=== PATIENT | female | born 2005 | race Caucasian/White ===

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

== ENCOUNTER 2023-01-05 20:36 | Emergency (ER) | payer BC, OTHER ==
--- NOTE | 2023-01-05 20:49 | ER ---
Nurse's Notes [facility] Name: Janeth Arteaga Age: 17 yrs Sex: Female : 2005 Arrival Date: 01/05/2023 Time: 20:36 Bed Waiting Private MD: Diagnosis: Presentation: 01/05 20:47 Chief complaint: left because of no OB and wait time. vc1 ED Course: 20:41 Patient arrived in ED. es Administered Medications: No medications were administered Outcome: 20:48 Patient left the ED. vc1 Signatures: Ignacia Monroe Vanessa RN RN vc1
--- OUTSIDE RECORDS SUMMARY | 2023-01-05 21:04 | XMS REPORT | Continuity of Care Document ---
:2005 Author Organization [facility] t Address [address] [facility]. [address] [place] [address] Care Team Providers Name Role Phone PCP, PATIENT DOES NOT HAVE A Primary Care Physician Unavaila DUSTIN Donis Attending Clinician Unavailable DUSTIN STAPLES Attending Clinician Unavailable José Miguel Gaines MD Attending Clinician Giovana Emerson DO Attending Clinician GIOVANA EMERSON Attending Clinician Unavailable DUSTIN STAPLES Admitting Clinician Unavailable Giovana Emerson DO Admitting Clinician GIOVANA EMERSON Admitting Clinician Unavailable Payers Payer Name Policy Type Policy Number Effective Date Expiration Date S [facility] [id number] 2021 00:00:00 Problems Condition Condition Condition Status Onset Resolution Last Treating Co mments Source Name Details Category Date Date Treatment Clinician Date 13 weeks 13 weeks Disease Active Unive rs gestation gestation 9-10 ity of of of 00:00: [place] 00 [facility] batsheva Branch Syncope, Syncope, Disease Active Unive rs unspecifie unspecifie 11-04 it y of d syncope [place] 00 [place] Obesity Obesity Disease Active Univers (BMI (BMI - ity of 30-39.9) 30-39.9) 00:00: [place] 00 Medical Branch Allergies, Adverse Reactions, Alerts Allergy Allergy Status Severity Reaction(s) Onset Inactive Treating Comm ents Source Name Type Date Date Clinician Clinangélica Propensi Active Rash Univer s yanna ty to 11-04 ity of adverse 00:00: [place] reaction 00 Medical s Branch CLINDAMY DRUG Active Rash Univers YANNA INGREDI 11-04 ity of 00:00: [place] 00 Medical Branch NO KNOWN Drug Active Univers ALLERGIE Class ity of [facility] Social History Social Habit Start Date Stop Date Quantity Comments Source Gender identity Universit [facility] Sexual orientation Univer [facility] Sex Assigned At [address] [facility] 00:00:00 00:00:00 Medical Branch Smoking Status Start Date Stop Date Source Tobacco [facility] consumption [facility] Medications Ordered Filled Start Stop Current Ordering Indication Dosage Frequency Signature Comments Components Source Medication Medication Date Date Medication? Clinician (SIG) Name Name NaCl 0.9% Yes 1000mL at 125 Univ ers (NS) IV 9-10 mL/hr, IV ity of infusion 00:00[place] 1,000 mL 00 CONTINUOUS Medic al , Starting Branch on 11/04/22 at 1900, Until Discontinu ed, Routine 2022- Yes [id number] 1{tbl} Take 1 Univers vitamin 9-10 10-11 tablet by ity of w/FA tablet 00:00: 04:59 mouth in [place] :00 the Medical morning Branch for 30 days. acetaminoph Yes 650mg 650 mg, Un roset[place] en 11-04 Oral, ity of (TYLENOL) 23:53: Q6HPRN, [place] tablet 650 14 Starting Medic al mg on Sat Branch 11/04/22 at 1853, Until Discontinu ed, Routine, Pain (scale 1-3) NaCl 0.9% 2022- No 1000mL at 999 Uni vers (NS) bolus 11-04 mL/hr, ity of infusion 21:45: 23:44 1,000 mL, [place]il[place] as 1,000 mL 00 :00 IV Medical Infusion, Branch ONCE, 1 dose, On 11/04/22 at 1645, CARLA Vital Signs Vital Name Observation Time Observation Value Comments Source Systolic blood 2022-11-05 14:25:00 112 mm[Hg] Univer sity of pressure [facility] Diastolic blood 2022-11-05 14:25:00 62 mm[Hg] [facility] Heart rate 2022-11-05 14:25:00 78 /min [facility] Body temperature 2022-11-05 14:25:00 36.89 Riri [facility] Oxygen saturation in 2022-11-05 14:25:00 99 /min [facility] Arterial blood by [facility] Pulse oximetry [place] Respiratory rate 2022-11-05 01:00:00 18 /min [facility] Body height 2022-11-04 20:48:00 149.9 cm [facility] Body weight 2022-11-04 20:48:00 68.04 kg [facility] BMI 2022-11-04 20:48:00 30.30 kg/m2 [facility] Procedures Procedure Date / Time Performing Clinician Source Performed TRANSTHORACIC ECHO (TTE) 2022-11-05 13:34:[address] [facility] POCT GLUCOSE (AUTOMATED) 2022-11-05 09:22:00 Kian [facility] POCT GLUCOSE (AUTOMATED) 2022-11-05 05:39:00 Giovana Emerson [facility] CORTISOL PM SERUM 2022-11-05 01:20:00 Kian [facility] FREE T4 2022-11-05 01:20:00 Kian [facility] THYROID STIMULATING 2022-11-05 01:20:00 Giovana Emerson [facility] HORMONE [facility] FREE T3 2022-11-05 01:20:00 Kian [facility] POCT GLUCOSE (AUTOMATED) 2022-11-04 23:44:00 José Miguel Gaines [facility] TROPONIN I 2022-11-04 21:32:00 José Miguel Gaines [facility] HEPATIC FUNCTION PANEL 2022-11-04 21:32:00 José Miguel Gaines [facility] ([id number]) (ALB,T.PRO,BILI Medical Branch T,BU/BC,ALT,AST,ALK PHOS) BASIC METABOLIC PANEL 2022-11-04 21:32:00 José Miguel Gaines [facility] (NA, K, CL, CO2, Medical Branch GLUCOSE, BUN, CREATININE, CA) TOTAL BETA HCG ASSAY 2022-11-04 21:32:00 José Miguel Gaines [facility] URINE DRUG (IMMUNOASSAY) 2022-11-04 21:32:00 José Miguel Gaines [facility] SCREEN CBC WITH DIFF 2022-11-04 21:32:00 José Miguel Gaines [place] [facility] PROTHROMBIN TIME / INR 2022-11-04 21:32:00 José Miguel Gaines [facility] 2022-11-04 21:32:[address] [facility] THRMPLAS [facility] URINALYSIS 2022-11-04 21:32:00 José Miguel Gaines [place] [facility] N-TERMINAL PRO-BNP 2022-11-04 21:32:00 José Miguel Gaines [facility] NOTICE OF PRIVACY 2022-11-04 20:35:05 Doctor Unassigned, No Univ [facility] PRACTICES Name [facility] CONSENT/REFUSAL FOR 2022-11-04 20:34:07 Doctor Unassigned, No [facility] DIAGNOSIS AND TREATMENT Name [facility] Encounters Start End Encounter Admission Attending Care Care Encounter Source Date/Time Date/Time Type Type Clinicians Facility Department ID 2023-01-01 2023-01-01 Outpatient X DUSTIN STAPLES [facility] O BY [id number] Univers 14:33:00 16:05:00 DUSTIN STAPLES [facility] 2022-11-04 2022-11-05 Emergency José Miguel Gaines [facility] [id number] Univers 15:49:00 15:10:00 Giovana Emerson [id number] [facility] [id number] [facility] [id number] [facility] 083 Branch 2022-11-04 2022-11-05 Outpatient X KIAN [facility] [id number] Univers 15:49:00 15:10:00 GIOVANA [facility] Results Test Description Test Time Test Comments Results Result Comments Source NIPS W/ SEX 2022-12-05 17:03:39 Test Item Value Reference Range Interpretation Comme nts FINAL NIPS RESULT (test Low Risk code = 00298) SEX (test code = Female 13205) FRACTION (EST.) (test 7 % code = 84433) TRISOMY 21 (T21) (test code Low probability = 06093) T21 PRE-TEST PROB (test 02/26,146 code = 75528) T21 POST-TEST PROB (test <20,000 code = 10831) TRISOMY 18 (T18) (test code Low probability = 082245) T18 PRE-TEST PROB (test 02/27,515 code = 279770) T18 POST-TEST PROB (test <20,000 code = 355118) TRISOMY 13 (T13) (test code Low probability = 427960) T13 PRE-TEST PROB (test 03/03,972 code = 381643) T13 POST-TEST PROB (test <20,000 code = 113996) INTERPRETATION (test code = See Note Testing of circulating cell-free DNA 786605) from maternalbl ood shows no evidence of numerical ab normalitiesof the tested ch romosomes. IMPORTANT INFORMATION (test See Note Patients with a pre-test probability code = 922971) higher thanth e general population will have a higher r esidualrisk, even after negative NIPS r esults, than thosewith a lower pre-[place] t probability. The pre-testprobabi lity or risk of an abnormality is estimatedfrom maternal age but it may be influenced bycertain maternal or pre gnancy-related factors asdetailed in T est Performance Characteristics below.False negative NIPS results ar e rare but may occurdue to biological o r analytical factors. RECOMMENDATION (test code = See Note A negative result does not eliminate 989467) the risk foroth er chromosomal abnormalities o r birthdefects that are not evaluated i n this screeningtest. Clinical correl ation of test results isrecommended. GESTATION AT JENNIFER (W) (test 18 weeks code = 233273) GESTATION AT JENNIFER (D) (test 4 days code = 163863) DELIVERY DATE (EST.) (test 04/26/2023 code = 281674) PROVIDED HISTORY INFORMATION (test code = 312506) NUMBER OF FETUSES (test [place] code = 029211) MATERNAL WEIGHT (test code 163 LBS = 868489) IVF (test code = NO 831490) PATIENT CONSENT (test code YES = 872484) SEX (test code = See Note sex determination is based on 959317) detection of Yc hromosome in DNA fragments. The absence of Ychromosome in this sample indicates a very highlikelihood that the fetus is female sex. Sex assignment may not be perfectly accur ate due topregnancy-rel ated issues such as demise am ongother possibilities. sex deter mination doesnot exclude Sex Chr omosome Aneuploidy (SCA),including Monosomy X, unless that testing is specifically ordered. Genetic Ice Cream Truck Driver ing:The submitting laboratory can facilitate consultation with anindepend ent, qualified genetic counselor. Educ ational materials andinformation regarding genetic counseling serv ices are available [email or web address]. Method:[facility]'s Non-Invasive Pr enatal Screening (NIPS)test is i ntended for early screening of fe everardo aneuploidies (bothmonosomy a nd trisomy) in chromosomes 21, 18, 13, X and Y. The testutilizes Il Fanshout's Tal[employer] Flush NIPT Solution v2 and whole-genomesequencing of circulating fragments of cell-free DNA (cfDNA) obt ainedfrom maternal plasma at 10 we eks gestation or later. The fetalcompon ent of cfDNA is derived from placental tissue. Paired-endseque ncing data of cfDNA are aligned with a reference genome (HG19)and karma zed by the Tal[employer] Flush NIPT Solution v2 alg orithm to determinefetal fraction (FF) and numerical abnor malities in chromosomes 21,18, 13, X an d Y. FF is used as a chief vendor quality parameter for NIPSanalysis an d interpretation. This test was develo ped and itsperformance characteristics determined by [facility]). It has not been cleared or approved by the U.S. Food and DrugAd ministration (FDA). The FDA has determi ella that such clearance orapproval is n ot necessary. This test is used for cli nical purposesand should not be r egarded as investigational or for research. [facility] isqualified to perform high complexity testing under t he ClinicalLaboratory Improvement Pat ndflash (CLIA). Test Performance Alisha racteristics:[place] :Triso my 21 (N=130): Sensitivity >99 %, Specificity >99.9%Trisomy 1 8 (N=41): Sensitivity >99%, Specifici ty >99.9%Trisomy 13 (N=26): Sensiti vity >99%, Specificity >99.9%Monosomy X (N=21): Sensitivity 90.5%, Specific ity >99%Trisomy X (N=17): Sensiti vity >99%, Specificity >99%XXY (N=23): Sensitivity >99%, Specificity &gt ;99%XYY (N=12): Sensitivity 91. 7%, Specificity >99% Sensitivity and specificity for singletons for T21, T18 and T13 andsex chromosome aneu ploidies (SCA) are derived from a study of 2,235pregnancie s using the [employer] MedicaliSeq NIPT v2 test. T he number of affectedpregnan cies are indicated in parentheses in the chart above. Thespecificity estimate for SCA is based on identi fication of a definedSCA in a ll 73 affected pregnancies; th e final cytogenetic results mayindi luis m a different SCA. Concordance bet ween predicted sex and sexat delivery was >99.9%. Twin :Triso my 21: Sensitivity 96.4%, Specific ity 99.9%Trisomy 18: Sensitivity 95. 7%, Specificity 99.9%Trisomy 13 : Sensitivity 93.6%, Specificity 99. 9% Test performance characteristics for T21, T18 and T13 in twinpregnanc ies are based on in silico simulati on models due to the lowprevalence o f trisomy 21, 18, and 13 in twin preg nancies. Sensitivityand specificity inf ormation is not available for M onosomy X or SCAin twin pregnancies. Pr e- and Post-Test Probability:The pre-test probability of a trisomy in urbina and twinpregnancies , and SCA in urbina pregnancies is based on literatureof prevalence or r isk. The post-test probability is calculated fromthe prevalence of a n abnormality and the test performanc echaracteristics or is derived from pu blished medical literature.Refe r to [email or web address]/erd for additionali nformation on pre- and post-test proba bility. Depending upon anumber of mate rnal or -relat ed risk factors, an individualpregn victor manuel may have higher or lower pre-test probability which cansignificantl y affect the post-test risk estimation . Personal/family history, sonographic and other pregn victor manuel-related screening findingsare not utilized in the risk estimation. Gen etic or medicalcounseli ng may be useful to revise risk est imates. Test Limitations:[facility] NI PS test is a screening test, therefore false negative or false positive result s can occur. Maternalconditi ons including but not limited to bloo d transfusion, organtransplant ation, bone marrow transplant, cer tain surgical procedures,stem cell therapy, malignancy or g enetic mosaicism can affect testaccu racy. -related conditions such as or placentalgeneti c mosaicism, demise or nonvi able twin can also affecttest accu racy. The test assesses numerical abnor malities of the givenchromosome s which does not eliminate the p ossibility that thepregnancy welch s numerical abnormalities o f other chromosomes, balancedtranslo cations or sub-chromosomal abnormalities (point mutations orsma ll deletions). Test results should always be correlated andinterpreted in the context of clinical findin gs, family/patienth istory and other test results. Pregna ncies affected by high riskresults may benefit from genetic counseling and should undergodefiniti ve confirmation testing. Conclu sions about conditionand pr egnancy management decisions shoul d not be based solely on theresults o f this screening test. This NIPS test does not detect allgenetic, non -genetic or structural defects, includingopen neural tube defects fo r which biochemical or sonographicscre ening options are available. TEST ING PERFORMED AT [employer] [employer] [address], [address], [address] [place] [address] CLIA N O: [id number] CULTURE, [id number] 11:19:56SPECIMEN NUMBER: [id number] CULTURE, URINE SPECIMEN NUMBER: [id number] SPECIMEN COMMENT: URINE SOURCE:URINE REPORT STATUS: FINAL FINAL REPORT: 11/29/2022 10-50,000 CFU/ML UROGENITAL GRZEGORZ PRESENT NO COMM ON PATHOGENSCT/NG, NAAT, [id number] 18:32:49 Test Item Value Reference Range Interpretation Comments CHLAMYDIA, NAAT, NEGATIVE NEGATIVE Testing is performed with URINE (test code Kayla ROLLY 6800/8800 = 28986) systems usingre al-time polymerase marti n reaction (PCR) method. A negative result does not exclude low level infection , specimensamplin g error, or collection erro r. GONORRHEA, NAAT, NEGATIVE NEGATIVE Testing is performed with URINE (test code Kayla ROLLY 6800/8800 = 59108) systems usingre al-time polymerase marti n reaction (PCR) method. A negative result does not exclude low level infection , specimensamplin g error, or collection erro r. VARICELLA ZOSTER [id number] 13:54:57 Test Item Value Reference Range Interpretation Comments VARICELLA ZOSTER IgG 20 INDEX SEE BELOW L INTERP RETATION VZV IgG (test code = 74029) NEGATIVE . . . . . . . . . . . . INDEX < 135 EQUIVOCAL. . . . . . . . . . . . INDEX 1 35-164 NOTE: CONSIDER RETESTING IN A CLINICALLY SUITABLE PERIOD OF TIME, NO SOONER THAN 1-2 WEEKS. POSITIVE . . . . . . . . . . . . INDEX >=165 GLUCOSE, 1 HR, GESTATIONAL SCREEN, 50 GM [id number] 09:12:10 Test Item Value Reference Range Interpretation Comments GLUCOSE 1 HR POST 50 81 MG/DL <140 UNLESS OTHERWISE GM (test code = INDICATED, A LL TESTING 2005) PERFORMED AT [facility] [employer] [employer] [address] [place] [id number] [place] [address] DIRECTOR: Elba STOREY MADINA NUMBER [id number] CAP ACCREDITATION N O. [id number] DRUG ABUSE SCREEN 10 REFLEX [id number] 06:10:44 Test Item Value Reference Range Interpretation Comments AMPHETAMINES (test NEGATIVE NEGATIVE code = 3201) BARBITURATES (test NEGATIVE NEGATIVE code = 3202) BENZODIAZEPINES (test NEGATIVE NEGATIVE code = 3203) CANNABINOIDS (test NEGATIVE NEGATIVE code = 3204) COCAINE METABOLITE NEGATIVE NEGATIVE (test code = 3205) OPIATES (test code = NEGATIVE NEGATIVE 3209) OXYCODONE (test code NEGATIVE NEGATIVE = 13601) PHENCYCLIDINE (test NEGATIVE NEGATIVE code = 3210) METHADONE (test code NEGATIVE NEGATIVE = 3207) BUPRENORPHINE (test NEGATIVE NEGATIVE code = 08819) SOURCE (test code = URINE SEE BELOW FOR 116138) THRESHOLDS AND IMPORTANT METHOD NOTES * ANALYTE SCREENING CUTOF F CONFIRMATORY CUTOFF AMPHETAMINES 50 0 NG/ML 100 NG/MLBARBIT URATES 200 NG/ML 100 NG/MLBENZODIAZE PINES 200 NG/ML 100 NG/MLCANNABINOI DS (THC) 20 NG/ML 15 NG/ MLCOCAINE METABOLITES 15 0 NG/ML 100 NG/MLOPIATE METABOLITES 300 NG/ML 100 NG/MLOXYCODONE 100 NG/ML 100 NG/MLPHENCY CLIDINE (PCP) 25 NG/ML 25 NG/MLMETHADONE 300 NG/ML 100 NG/MLBUPREN ORPHINE 5 NG/ML 5 NG/ML N OTE: Screening metho dology is qualitative Enz yme Immunoassay.The screening method may be l ess sensitive for c ertain medicationsincl uding clonazepam and lorazepam in the benzodia zepine assay andtramad ol or fentanyl in the opiate assay, amongst others. Patientcomplian ce, hydration statu s, timing and dose of med ications, drugabsorption and specimen qualit y may affect screenin g assay.For clini batsheva discrepancies, consider directed testin g for specificcompoun ds or contact the lab oratory within specimen stability toforward for confirmatory te sting. This test is sp ecified for medicalpurp oses only. It is not valid for forensic use. OBSTETRIC PANEL + [id number] 05:03:20 Test Item Value Reference Range Interpretation Comments WBC (test code = 10.5 K/UL 3.5-11.0 1001) RBC (test code = 3.76 M/UL 3.80-5.40 L 1002) HEMOGLOBIN (test 10.9 G/DL 11.5-15.5 L code = 1003) HEMATOCRIT (test 33.3 % 34.0-45.0 L code = 1004) MCV (test code = 88.6 fL 80.0-99.0 1005) MCH (test code = 29.0 PG 25.0-33.0 1006) MCHC (test code = 32.7 G/DL 31.0-36.0 1007) RDW (test code = 12.8 % 11.5-15.0 1038) NEUTROPHILS (test 66.7 % code = 1008) LYMPHOCYTES (test 21.6 % code = 1010) MONOCYTES (test 7.2 % code = 1011) EOSINOPHILS (test 3.6 % code = 1012) BASOPHILS (test 0.4 % code = 1013) IMMATURE 0.5 % GRANULOCYTES (test code = 1036) NUCLEATED RBCS 0.0 /100 WBC'S See_Comment [Automated message] (test code = 1065) The syste [employer] which generated this result transmit sergey reference range : 0.0. The refere nce range was not u sed to interpret th is result as normal/abnormal . PLATELET COUNT 275 K/UL 130-400 (test code = 1015) ABSOLUTE 7.02 K/UL 1.50-7.50 NEUTROPHILS (test code = 1066) ABSOLUTE 2.27 K/UL 1.00-4.00 LYMPHOCYTES (test code = 1067) ABSOLUTE MONOCYTES 0.76 K/UL 0.20-1.00 (test code = 1068) ABSOLUTE 0.38 K/UL 0.00-0.50 EOSINOPHILS (test code = 1040) ABSOLUTE BASOPHILS 0.04 K/UL 0.00-0.20 (test code = 1069) ABS IMMATURE 0.05 K/UL 0.00-0.10 GRANULOCYTES (test code = 1020) ABS NUCLEATED RBCS 0.00 K/UL 0.00-0.11 (test code = 60921) BLOOD TYPE AND RH A POSITIVE A HISTORI BATSHEVA RECORD (test code = 3901) CHECK FOR PREVIOUS RESULTS IS NOT PERFORMED.THESE RESULTS SHOULD BE CORRELATED WITH RESULTS OF PRIO R BLOODTYPING AND ANTIBODY SCREEN STUDIES. ANTIBODY SCREEN NEGATIVE NEGATIVE A HISTORICA L RECORD (test code = 3902) CHECK FOR PREVIOUS RESULTS IS NOT PERFORMED.THESE RESULTS SHOULD BE CORRELATED WITH RESULTS OF PRIO R BLOODTYPING AND ANTIBODY SCREEN STUDIES. RUBELLA ANTIBODY 2 IU/ML SEE BELOW L SCREEN (test code = 4600) RUBELLA IgG INTERP NON-REACTIVE REACTIVE A INTERPRE TATION (test code = 31739) UNITS RA NGE NON-REACTIVE/NO N-IMM UNE IU/ML <10 REACTIVE/IMMUNE IU/ML >=10 HEPATITIS B SURF AG NON-REACTIVE NON-REACTIVE (test code = 2739) RPR (test code = NON-REACTIVE NON-REACTIVE 28598) RPR TITER (test NOT INDIC. NOT INDIC. code = 3500) TITER HIV 1/2 4TH GEN, NON-REACTIVE NON-REACTIVE RFLX CONF (test code = 3514) HEPATITIS C REFLEX [id number] 05:03:20 Test Item Value Reference Range Interpretation Comments HEPATITIS C ANTIBODY (test code NON-REACTIVE NON-REACTIVE = 4675) [id number] 03:42:03 Test Item Value Reference Range Interpretation Comments RPR RESULT (test code = NON-REACTIVE NON-REACTIVE 3501) RPR TITER (test code = 3500) NOT INDIC. TITER NOT INDIC. POCT GLUCOSE (AUTOMATED)2022-11-05 09:24:00 Test Item Value Reference Range Interpretation Comments POCT GLU (test code = 4360755520) 80 mg/dL 70-110 Lab Interpretation (test code = Normal 64835-6) [facility] [id number] 06:40:24 Test Item Value Reference Range Interpretation Comments MESFIN PM (test code = 3.0 ug/dL 1.7-14.0 5624194101) SUSIE (test code = SUSIE) Biotin has been reported to cause a positive bias, interpret results relative to patient's use of biotin. Lab Interpretation (test Normal code = 79689-1) [facility]2022-11-05 05:40:14 Test Item Value Reference Range Interpretation Comments POCT GLU (test code = 8450691074) 103 mg/dL 70-110 Lab Interpretation (test code = Normal 91437-7) [facility] [id number] 03:07:32 Test Item Value Reference Range Interpretation Comments TSH (test code = See_Comment L [Automated message] [id number]) The system Guest of a Guest generated this result transmitted ref erence range: 0.45 - 4 .70 mIU/L. The refe rence range was not u sed to interpret this result as normal/abnor mal. Lab Interpretation (test Abnormal code = 44912-3) [facility] [id number] 02:53:49 Test Item Value Reference Range Interpretation Comments FREE T4 (test code = 1.14 See_Comment [Autom ated message] [id number]) The system whic h generated this result transmitted ref erence range: 0.78 - 2 .20 ng/dL:. The ref erence range was not u sed to interpret this result as normal/abnor mal. Lab Interpretation (test Normal code = 15925-9) [facility] [id number] 02:53:34 Test Item Value Reference Range Interpretation Comments FREE T3 (test code = 0558677030) 4.36 pg/mL 2.77-5.27 Lab Interpretation (test code = Normal 47096-1) [facility] GLUCOSE (AUTOMATED)2022-11-04 23:45:31 Test Item Value Reference Range Interpretation Comments POCT GLU (test code = 85 mg/dL 70-110 Notifi ed Provider [id number]) Lab Interpretation (test Normal code = 37910-3) [facility] WITH [id number] 22:06:58 Test Item Value Reference Range Interpretation Comments WBC (test code = 9.08 See_Comment [Automated 5890-2) message] The sy stem which generated this result transmitted reference range : 4.30 - 11.10 10*3/?L. The reference range was not used to interpret this result as normal/abnormal . RBC (test code = 3.97 See_Comment [Automated 409-8) message] The sy stem which generated this result transmitted reference range : 3.93 - 5.25 10*6/?L. The reference range was not used to interpret this result as normal/abnormal . HGB (test code = 12.1 g/dL 11.6-15.0 718-7) HCT (test code = 35.3 % 35.7-45.2 L 4544-3) MCV (test code = 88.9 fL 80.6-95.5 787-2) MCH (test code = 30.5 pg 25.9-32.8 785-6) MCHC (test code = 34.3 g/dL 31.6-35.1 786-4) RDW-SD (test code = 42.1 fL 39.0-49.9 75291-8) RDW-CV (test code = 12.9 % 12.0-15.5 788-0) PLT (test code = 263 See_Comment [Automated 777-3) message] The sy stem which generated this result transmitted reference range : 166 - 358 10*3/ ?L. The reference r sj was not used to interpret this result as normal/abnormal . MPV (test code = 10.9 fL 9.5-12.9 27467-7) NRBC/100 WBC (test 0.0 See_Comment [Automat ed code = [id number]) message] The system which generated this result transmitted reference range : 0.0 - 10.0 /100 WBCs. The refer ence range was not u sed to interpret th is result as normal/abnormal . NRBC x10^3 (test code See_Comment [Auto mated = [id number]) message] The s ystem which generated this result transmitted reference range : 10*3/?L. The reference range was not used to interpret this result as normal/abnormal . GRAN MAT (NEUT) % 70.6 % (test code = 770-8) IMM GRAN % (test code 0.30 % = 7980317319) LYMPH % (test code = 17.5 % 736-9) MONO % (test code = 8.5 % 5905-5) EOS % (test code = 2.8 % 713-8) BASO % (test code = 0.3 % 706-2) GRAN MAT x10^3(ANC) 6.41 10*3/uL 1.88-7.09 (test code = 3130190796) IMM GRAN x10^3 (test 0.03 10*3/uL 0.00-0.06 code = 2099570446) LYMPH x10^3 (test code 1.59 10*3/uL 1.32-3.29 = 731-0) MONO x10^3 (test code 0.77 10*3/uL 0.33-0.92 = 742-7) EOS x10^3 (test code = 0.25 10*3/uL 0.03-0.39 711-2) BASO x10^3 (test code 0.03 10*3/uL 0.01-0.07 = 704-7) Lab Interpretation Abnormal (test code = 28129-0) [facility], [id number] 10:04:28SPECIMEN NUMBER: [id number] CULTURE, URINE SPECIMEN NUMBER: [id number] SPECIMEN COMMENT: URINE SOURCE:URINE REPORT STATUS: FINAL FINAL REPORT: 10/29/2022 <10,000 CFU/ML UROGENITAL GRZEGORZ PRESENT NO COMMON PATHOGENSVAGINAL PATHOGENS DNA PANEL 2022-10-28 14:46:31 Test Item Value Reference Range Interpretation Comments BRENDA SPECIES POSITIVE NEGATIVE A (test code = ) G. VAGINALIS NEGATIVE NEGATIVE (test code = ) T. VAGINALIS NEGATIVE NEGATIVE Note: The BD A ffirm VPIII (test code = Microbial Ident ification ) Testis a DNA pr obe test intended for us e in the detectionand id entification of Brenda spec ies, Gardnerellavagi nalis and Trichomonas vag inalis nucleic acid. UNLESS OTHERWISE INDIC ATED, ALL TESTING [facility] [place] [place] [address] LABORATORY DIRE CTOR: CHRIS PATEL M.D. CLIA NUMBER [id number] CAP ACCREDITATION N O. [id number] Consult Notes Date/Time Note Provider Source 2022-11-05 11:00:31 [id number]:00:31[facility] Order(s): CONSULT DISEASE STAFF CARDIOLOGY [facility] Cardiology ConsultPCP: PATIENT DOES NOT HAVE A PCP Date of Service: 11/05/2022HIEF COMPLAINT/reason for consult: Syncope HISTORY OF PRESENT ILLNESSThis is a 17 years old Female without significant medical history who came to [facility] due to syncope. She is 13 weeks . Since the , she has been having frequent episodes of dizziness and syncope. Those episodes are usually preceded by nausea, dizziness, feeling hot, muffled hearing and blurry vision. Syncope lasted a few seconds. No incontinence or seizure activity.PAST MEDICAL HISTORY No past medical history on file.No past surgical history on file.No family history on file.ALLERGIESAllergies Allergen Reactions Clindamycin Rash MEDICATIONSNo current facility-administered medications on file prior to encounter. No current outpatient medications on file prior to encounter. SOCIAL HISTORYSocial History Socioeconomic History Marital status: Single REVIEW OF SYSTEMSAt least 10 systems reviewed, negative except as mentioned in HPI PHYSICAL EXAMINATIONVitals: 11/04/22202911/04/22203411/05/225 11/05/22924 BP: 134/88 112/62 Pulse: 81 79 78 Resp: Temp: 36.9 ?C (98.4 ?F) TempSrc: Oral SpO2: 100% 100% 99% Weight: Height: Constitutional: alert and oriented x 3 (person, place and date/time); no apparent distressENT: normocephalic atraumatic, supple, no lymphadenopathy, no bruits, no JVDLungs: clear to auscultation bilaterallyCardiovascular: S1, S2 normal, regular; no murmurs, rubs or gallopsGI: soft; non-tender; non-distended; normoactive bowel soundsGU: not examinedMusculoskeletal: Extremities: no clubbing, cyanosis, or edemaSkin: no rashesNeuro: no focal deficitsLABS - reviewed pertinent labs as below:CBC BMP PT/INR WBC (10*3/?L) Date Value 11/04/2022 9.08 NA (mmol/L) Date Value 11/04/2022 136 No results found for: "PT" PLT (10*3/?L) Date Value 11/04/2022 263 K (mmol/L) Date Value 11/04/2022 4.2 INR (no units) Date Value 11/04/2022 1.0 HGB (g/dL) Date Value 11/04/2022 12.1 BUN (mg/dL) Date Value 11/04/2022 5 (L) HCT (%) Date Value 11/04/2022 35.3 (L) CREATININE (mg/dL) Date Value 11/04/2022 0.41 (L) LIPID PROFILE GLUCOSE (mg/dL) Date Value 11/04/2022 89 No results found for: "CHOL" TSH No results found for: "LDL" TSH (mIU/L) Date Value 11/04/2022 <0.02 (L) CARDIAC ENZYMES No results found for: "HDL" No results found for: "CK" No results found for: "TRIG" LFTs No results found for: "CKMB" AST(SGOT) (U/L) Date Value 11/04/2022 42 (H) TROPONIN I (ng/mL) Date Value 11/04/2022 0.003 ALTv (U/L) Date Value 11/04/2022 28 No results found for: "BNP" EKG: Normal EKGASSESSMENT/PLANPrincipal Problem: Syncope, unspecified syncope typeActive Problems: Obesity (BMI 30-39.9)Syncope-likely vasovagal syncope in the setting of . EKG is normal. Echocardiogram is normal. No major cardiac risk factors. Blood pressure has been stable. Recommend to increase water intake. Avoid caffeine and alcohol intake. Wear compression stockings during the daytime. Fall precautions. Cardiology follow-up as needed.Obesity-diet and exercise.Thank you for allowing us to participate in the care of your patient. Please feel free to contact us for any questions or if we can be of further assistance.Allyson Billings MD, FACC, FASEAssociate ProfessorDivision of Cardiovascular MedicineTexas Health Frisco [address]-1Pfuxsxs jtvyZV6804-97-14L24:03:31Consult noteTXT1.2.840.176886.1.13.104.2. 7.2.789688|[id number] for patient awhi26122-0Ocrpnve noteLNIM-CARDIOVASCULAR DISEASE STAFFIM-CARDIOVASCULAR DISEASE [facility] - [address] El[id number] 450JFXYJOIURSQCLMQUAOYFTE5571-89- 10T1:03:311.2.840.567728.1.72.3. 15|1.2.840.463000.1.13.104.2.7.2. [id number] 2022-11-05 10:54:29 7916-82-16B42:54:29[facility]ated [facility] Order(s): CONSULT OB/GYN TRIAGE HISTORY & PHYSICALIDENTIFYING DATACopurnima Adams is 17 year old, /White, Unknown, female with CARL Not found.. : 2005MRN: [id number] Care Physician: PATIENT DOES NOT HAVE A PCPCHIEF COMPLAINTSyncopeHISTORY OF PRESENT ILLNESSCopurnima Adams is a 17 year old female,, 13w6d admitted with c/o multiple syncopal episodes.Reports happens mainly after she vomits but not yesterday's episode was unrelated to vomiting.She also reports intermittent episodes of palpitations, denies CP or SOBShe denies vaginal bleeding, pelvic or abdominal painPRENATAL CARE: care with [facility] OBSTETRIC HISTORYOB History Para Term AB Living 1 SAB IAB Ectopic Multiple Live Births # Outcome Date GA Lbr Bora/2nd Weight Sex Delivery Anes PTL Lv 1 Current PAST MEDICAL HISTORYProblem list: Patient Active Problem List Diagnosis Date Noted 13 weeks gestation of 11/05/2022 Syncope, unspecified syncope type 11/04/2022 Obesity (BMI 30-39.9) 11/04/2022 Operations: No past surgical history on file.No past medical history on file. CURRENT HEALTH STATUSMedications: Current Facility-Administered Medications Medication Dose Route Frequency Last Rate Last Admin acetaminophen (TYLENOL) tablet 650 mg 650 mg Oral Q6HPRN 650 mg at 11/05/22 1015 NaCl 0.9% (NS) IV infusion 1,000 mL 1,000 mL IV Infusion CONTINUOUS 125 mL/hr at 11/05/22 0221 Rate Verify at 11/05/22 0221 Allergies and drug reactions: ClindamycinHOME MEDICATIONSNo medications prior to admission. SOCIAL HISTORYTobacco History: Social History Tobacco Use Smoking Status Not on file Smokeless Tobacco Not on file Drug History: Social History Substance and Sexual Activity Drug Use Not on file Alcohol History: Social History Substance and Sexual Activity Alcohol Use Not on file FAMILY HISTORYNo family history on file.REVIEW OF SYSTEMSGeneral: negativeConstitutional: negativeEyes: negativeENT/Mouth: negativeCardiovascular: negativeRespiratory: negativeGastrointestinal:negative Genitourinary: negativeMusculoskeletal: negativeSkin/breast: negativeNeurological: negativePsychiatric: negativeEndocrine: negativeHemat/Lymph: negativeAllergic/Immuno:noneVITAL SIGNSBP: (112-143)/(62-88) Temp: [36.9 ?C (98.4 ?F)-37.4 ?C (99.3 ?F)] Temp source: Oral (11/05 924)Pulse: [78-94] Resp: [16-21] SpO2: [99 %-100 %] Height: [149.9 cm (4' 11")] Weight: [68 kg (150 lb)] BMI (calculated): [30.3] PHYSICAL EXAMINATIONSGen: alert and oriented, well appearing, no distressCV: RRRResp: normal work of breathing, Abd: Soft, non-tender.FHR:150's by RNExt: no calf tenderness or edema REVIEW OF LABORATORY, PATHOLOGY, AND RADIOLOGY DATALab results:Type & Screen HIV Hep B Syphilis Chlamydia No results found for: "IABORH" No results found for: "HIVMULTIPLEX" No components found for: "HBSHBSAG" No results found for: "SYPIGG" No results found for: "VCAA" No results found for: "IAT" Varicella Rubella Glucose Group B Strep CBC No results found for: "VZVIGG" No results found for: "RUBG" No results found for: "IVRE0UI" No results found for: "CGBS" HGB Date Value Ref Range Status 11/04/2022 12.1 11.6 - 15.0 g/dL Final HCT Date Value Ref Range Status 11/04/2022 35.3 (L) 35.7 - 45.2 % Final PLT Date Value Ref Range Status 11/04/2022 263 166 - 358 10*3/?L Final Placenta Accreta Screening N/A Active Hospital Problems Diagnosis Date Noted 13 weeks gestation of 11/05/2022 Syncope, unspecified syncope type 11/04/2022 Obesity (BMI 30-39.9) 11/04/2022 Resolved Hospital Problems No resolved problems to display. Present on Admission: Syncope, unspecified syncope type Obesity (BMI 30-39.9) 13 weeks gestation of pregnancyASSESSMENT AND PLANCourtalyse Adams is a 17 year old at 13w6d with syncopal episodesWork up so far has been negative including Echo and EKG s/p cardiology consultAdvised to keep hydrated am diet regular small meals.She may follow up with her regular OB once dischargedThank [place] [address]-4Olccndf qtusSN0757-75-73J88:50:19Consult noteTXT1.2.840.811960.1.13.104.2. 7.2.869253|[id number] for patient jwtq49390-0Dnyumfr [address][id number] 734EOOFFODSEVHHSANDGVXJOF3401-80- 10T12:50:191.2.840.176350.1.72.3. 15|1.2.840.611917.1.13.104.2.7.2. [id number] History and Physical Notes Date/Time Note Provider Source 2022-11-04 23:15:50 [id number]:15:50Formatting IM-INTERNAL [facility] of this note is different STAFF from the original.Medicine History & PhysicalDate of Service: 3Pt presents from: homeCC: syncopeHistory of Present Illness:Janeth Adams is a 17 year old female with a PMH of none who presented to the ED for sncope. She is 13 weeks . She deneis a personal history of anemia or cardiac disease. She has had multiple witnessed episodes of syncope since becoming . Previous episodes were associated with dsehydration. For the first couple weeks she had hyperemesis gravidarum. However for the past week she has not vomited. She has had poor appetite. Blood sugar on arrival was 85. She also endorses occasional papitations. Today she was walking her dog outdoors, all of a sudden felt warm, had blurred vision, then lost consciousness. She came to minutes later. No paralysis/lethargy/confusion following the event. ROS: Pt denies fever / chills / nausea / vomiting / diarrhea / constipation / chest pain / SOB / cough / abdominal pain / dysuria / hematuria / melena / hematochezia / rashes / suicidal or homicidal ideation / All others negativeReview of Hx/Meds:No current facility-administered medications on file prior to encounter. No current outpatient medications on file prior to encounter. I have reviewed the patient's home medicationsPMH: No past medical history on file.PSH: has no past surgical history on file. Family Hx: Current Scheduled Medications Current IV Current Facility-Administered Medications: acetaminophen (TYLENOL) tablet 650 mg, 650 mg, Oral, Q6HPRN, Giovana Emerson, , 650 mg at 11/04/222013 NaCl 0.9% (NS) IV infusion 1,000 mL, 1,000 mL, IV Infusion, CONTINUOUS, Giovana Emerson DO, Last Rate: 125 mL/hr at 11/04/222008, 1,000 mL at 11/04/222008Objective:Vitals:Vitals: 11/04/22 1945 11/04/22199911/04/22201311/04/222014 BP: 132/63 120/65 Pulse: 89 92 92 Resp: 18 Temp: TempSrc: SpO2: 100% 99% 99% Weight: Height: I/O's:No intake or output data in the 24 hours ending 11/04/22 2315Physical Exam:Constitutional: A&O x3, well-developed, well-nourished, and in no distress. Head: Normocephalic and atraumatic. Eyes: PERRL. Conjunctivae and EOM are normal. Neck: Normal range of motion. Neck supple. No JVD present.Cardiovascular: Normal rate, regular rhythm, normal heart sounds Pulmonary/Chest: Effort normal and breath sounds normal. No respiratory distress. No wheezes, rales or rhonchi. Abdominal: Soft. Bowel sounds are normal. No TTP, non-distended and no masses. No rebound or guarding. Musculoskeletal: Normal range of motion. No edema or tenderness. Lymphadenopathy: No cervical adenopathy. Neurological: A&O x3. No focal deficits. Gait normal. Skin: Skin is warm and dry. No rash noted. No erythema. No pallor. Labs:BMP:BMP NA (mmol/L) Date Value 11/04/2022 136 K (mmol/L) Date Value 11/04/2022 4.2 CALCIUM (mg/dL) Date Value 11/04/2022 9.1 CL (mmol/L) Date Value 11/04/2022 105 BUN (mg/dL) Date Value 11/04/2022 5 (L) CREATININE (mg/dL) Date Value 11/04/2022 0.41 (L) GLUCOSE (mg/dL) Date Value 11/04/2022 89 CO2 TOTAL (mmol/L) Date Value 11/04/2022 22 (L) CBC:CBCWBC (10*3/?L) Date Value 11/04/2022 9.08 RBC (10*6/?L) Date Value 11/04/2022 3.97 PLT (10*3/?L) Date Value 11/04/2022 263 HGB (g/dL) Date Value 11/04/2022 12.1 HCT (%) Date Value 11/04/2022 35.3 (L) BMP:Hepatic Function PanelALBUMIN (g/dL) Date Value 11/04/2022 3.9 T PROTEIN (g/dL) Date Value 11/04/2022 6.8 TOTAL BILI (mg/dL) Date Value 11/04/2022 0.2 BILI UNCON (mg/dL) Date Value 11/04/2022 0.0 (L) BILI CONJ (mg/dL) Date Value 11/04/2022 0.0 ALTv (U/L) Date Value 11/04/2022 28 AST(SGOT) (U/L) Date Value 11/04/2022 42 (H) ALK PHOS (U/L) Date Value 11/04/2022 55 Troponin: Recent Labs TROPNI 0.003 I have reviewed all relevant labsImaging:No results found.Assessment and plan:Principal Problem: Syncope, unspecified syncope typeActive Problems: Obesity (BMI 30-39.9) -admit to tele, L&D-echo to r/o structural abnormalities-q4h accuchecks-orthostatic VS in AM-carotid duplex US, bilateral DVT prophylaxis: SCDs Advanced Care Planning ( Z71.89 )Above assessment and plan discussed at length with patient, patient expressed full understanding. Questions and concerns addressed I spent 18 minutes discussing the advance care planning.Advanced Directive Maker: selfLevel of comfort: N/ACode Status: fullDisposition: obs S igned:Roman Holt MD11/04/2022 75658-5Hfuqfwl and physical xfuuCL0216-10-91O04:19:45Hist ory and physical noteTXT1.2.840.774664.1.13.10 4.2.7.2.788542|[id number] ailable for patient xwsc49152-9Unwnooz and physical noteLNIM-INTERNAL MEDICINE STAFFIM-INTERNAL MEDICINE STAFF[address] VhfeImfldqohfWabjbqesjLBXR970 [id number] 1762-02-17P52:19:451.2.840.11 4350.1.72.3.15|1.2.840.207268 .1.13.104.2.7.2.727879_189547 3387
== END 2023-01-05 20:48 | disposition left against medical advice (07) ==
LOC: ER 20:36
DX: Z53.21 Procedure and treatment not carried out due to patient leaving prior to being seen by health care provider (principal)
CPT/HCPCS: 99281

== ENCOUNTER 2023-01-08 14:31 | Emergency (ER) | payer BC, OTHER ==
--- OUTSIDE RECORDS SUMMARY | 2023-01-08 14:40 | XMS REPORT | Continuity of Care Document ---
:2005 Author Organization [facility] t Address [address] [place] [address] Care Team Providers Name Role Phone PCP, PATIENT DOES NOT HAVE A Primary Care Physician Unavaila DUSTIN Donis Attending Clinician Unavailable DUSTIN STAPLES Attending Clinician Unavailable José Migeul Gaines MD Attending Clinician Giovana Emerson DO Attending Clinician GIOVANA EMERSON Attending Clinician Unavailable DUSTIN STAPLES Admitting Clinician Unavailable Giovana Emerson DO Admitting Clinician GIOVANA EMERSON Admitting Clinician Unavailable Payers Payer Name Policy Type Policy Number Effective Date Expiration Date S [facility] [id number] 2021 00:00:00 Problems Condition Condition Condition Status Onset Resolution Last Treating Co mments Source Name Details Category Date Date Treatment Clinician Date 13 weeks 13 weeks Disease Active Unive rs gestation gestation 9-10 ity of of of 00:00: [place] 00 [facility] batsheva Branch Syncope, Syncope, Disease Active Unive rs unspecifie unspecifie - it y of d sync[place] d [place] 00 [place] Obesity Obesity Disease Active Univers (BMI (BMI 9- ity of 30-39.9) 30-39.9) 00:00: [place] 00 Medical Branch Allergies, Adverse Reactions, Alerts Allergy Allergy Status Severity Reaction(s) Onset Inactive Treating Comm ents Source Name Type Date Date Clinician Clinangélica Propensi Active Rash Univer s yanan ty to 11-04 ity of adverse 00:00: [place] reaction 00 Medical s Branch CLINDAMY DRUG Active Rash Univers YANNA INGREDI 11-04 ity of 00:00: [place] 00 Medical Branch NO KNOWN Drug Active Univers ALLERGIE Class ity of [facility] Social History Social Habit Start Date Stop Date Quantity Comments Source Gender identity Universit [facility] Sexual orientation [facility] Sex Assigned At [birth year] Uni versity [facility] 00:00:00 00:00:00 Medical Branch Smoking Status Start Date Stop Date Source Tobacco smoking consumption [facility] Medications Ordered Filled Start Stop Current Ordering Indication Dosage Frequency Signature Comments Components Source Medication Medication Date Date Medication? Clinician (SIG) Name Name NaCl 0.9% Yes 1000mL at 125 Univ ers (NS) IV 9-10 mL/hr, IV ity of infusion 00:00[place] 1,000 mL 00 CONTINUOUS Medic al , Starting Branch on 11/04/22 at 1900, Until Discontinu ed, Routine 2022- Yes [id number] 1{tbl} Take 1 Univers vitamin 9-10 10-11 tablet by ity of w/FA tablet 00:00: 04:59 mouth in [place] :00 the Medical morning Branch for 30 days. acetaminoph Yes 650mg 650 mg, Un [place] 11-04 Oral, ity of (TYLENOL) 23:53: Q6HPRN, [place] tablet 650 14 Starting Medic al mg [...] 14:25:00 112 mm[Hg] Univer sity of pressure [facility] Diastolic blood 2022-11-05 14:25:00 62 mm[Hg[facility] Heart rate 2022-11-05 14:25:00 78 /min [facility] Body temperature 2022-11-05 14:25:00 36.89 Riri [facility] Oxygen saturation in 2022-11-05 14:25:00 99 /min [facility] Arterial blood by [facility] Pulse oximetry [place] Respiratory rate 2022-11-05 01:00:00 18 /min [facility] Body height 2022-11-04 20:48:00 149.9 cm [facility] Body weight 2022-11-04 20:48:00 68.04 kg [facility] BMI 2022-11-04 20:48:00 30.30 kg/m2 [facility] Procedures Procedure Date / Time Performing Clinician Source Performed TRANSTHORACIC ECHO (TTE) 2022-11-05 13:34:00 Giovana Emerson [facility] POCT GLUCOSE (AUTOMATED) 2022-11-05 09:22:00 Kian [facility] POCT GLUCOSE (AUTOMATED) 2022-11-05 05:39:00 Giovana Emerson [facility] CORTISOL PM SERUM 2022-11-05 01:20:00 [facility] FREE T4 2022-11-05 01:20:00 Kian [facility] THYROID STIMULATING 2022-11-05 01:20:00 Giovana [facility] HORMONE [facility] FREE T3 2022-11-05 01:20:00 Kian [facility] POCT GLUCOSE (AUTOMATED) 2022-11-04 23:44:00 José Miguel Gaines [facility] TROPONIN I 2022-11-04 21:32:00 José Miguel Gaines [facility] HEPATIC FUNCTION PANEL 2022-11-04 21:32:00 José Miguel Gaines [facility] ([id number]) (ALB,T.PRO,BILI Medical Branch T,BU/BC,ALT,AST,ALK PHOS) BASIC METABOLIC PANEL 2022-11-04 21:32:00 José Miguel Gaines [facility] (NA, K, CL, CO2, Medical Branch GLUCOSE, BUN, CREATININE, CA) TOTAL BETA HCG ASSAY 2022-11-04 21:32:00 José Miguel Gaines [facility] URINE DRUG (IMMUNOASSAY) 2022-11-04 21:32:00 José Miguel Gaines [facility] SCREEN CBC WITH DIFF 2022-11-04 21:32:00 José Miguel Gaines [place] [facility] PROTHROMBIN TIME / INR 2022-11-04 21:32:00 José Miguel Gaines [facility] ACTIV[facility] PARTIAL 2022-11-04 21:32:00 José Miguel Gaines [facility] THRMPLAS [facility] URINALYSIS 2022-11-04 21:32:00 José Miguel Gaines [place] [facility] N-TERMINAL PRO-BNP 2022-11-04 21:32:00 José Miguel Gaines [facility] NOTICE OF PRIVACY 2022-11-04 20:35:05 Doctor Unassigned, No Univ [facility] PRACTICES Name [facility] CONSENT/REFUSAL FOR 2022-11-04 20:34:07 Doctor Unassigned, No [facility] DIAGNOSIS AND TREATMENT Name [facility] Encounters Start End Encounter Admission Attending Care Care Encounter Source Date/Time Date/Time Type Type Clinicians Facility Department ID 2023-01-01 2023-01-01 Outpatient X DUSTIN STAPLES [facility] O BY [id number] Univers 14:33:00 16:05:00 DUSTIN STAPLES [facility] 2022-11-04 2022-11-05 Emergency José Miguel Gaines [facility] [id number]. [id number] Univers 15:49:00 15:10:00 Giovana Emerson 350.1.13.10 [facility] 4.2.7.2.686 [facility] [id number] [facility] 083 Branch 2022-11-04 2022-11-05 Outpatient X KIAN [facility] [id number] Univers 15:49:00 15:10:00 GIOVANA [facility] Results Test Description Test Time Test Comments Results Result Comments Source NIPS W/ SEX 2022-12-05 17:03:39 Test Item Value Reference Range Interpretation Comme nts FINAL NIPS RESULT (test Low Risk code = 97780) SEX (test code = Female 73798) FRACTION (EST.) (test 7 % code = 36139) TRISOMY 21 (T21) (test code Low probability = 29279) T21 PRE-TEST PROB (test 02/26,146 code = 82559) T21 POST-TEST PROB (test <20,000 code = 16963) TRISOMY 18 (T18) (test code Low probability = 566957) T18 PRE-TEST PROB (test 02/27,515 code = 712581) T18 POST-TEST PROB (test <20,000 code = 107038) TRISOMY 13 (T13) (test code Low probability = 637755) T13 PRE-TEST PROB (test 03/03,972 code = 721089) T13 POST-TEST PROB (test <20,000 code = 881472) INTERPRETATION (test code = See Note Testing of circulating cell-free DNA 002091) from maternalbl ood shows no evidence of numerical ab normalitiesof the tested ch romosomes. IMPORTANT INFORMATION (test See Note Patients with a pre-test probability code = 609724) higher thanth e general population will have [...] Note A negative result does not eliminate 136254) the risk foroth er chromosomal abnormalities o r birthdefects that are not evaluated i n this screeningtest. Clinical correl ation of test results isrecommended. GESTATION AT JENNIFER (W) (test 18 weeks code = 878090) GESTATION AT JENNIFER (D) (test 4 days code = 779757) DELIVERY DATE (EST.) (test 04/26/2023 code = 565009) PROVIDED HISTORY INFORMATION (test code = 765874) NUMBER OF FETUSES (test [place] code = 660715) MATERNAL WEIGHT (test code 163 LBS = 676454) IVF (test code = NO 511581) PATIENT CONSENT (test code YES = 202641) SEX (test code = See Note sex determination is based on 215462) detection of Yc hromosome in DNA fragments. The absence of Ychromosome in this sample indicates a very highlikelihood that the fetus is female sex. Sex assignment may not be perfectly accur ate due topregnancy-rel ated issues such as demise am ongother possibilities. sex deter mination doesnot exclude Sex Chr omosome Aneuploidy (SCA),including Monosomy X, unless that testing is specifically ordered. Genetic Homicide Squad Captain ing:The submitting laboratory can facilitate consultation with anindepend ent, qualified genetic counselor. Educ ational materials andinformation regarding genetic counseling serv ices are available [email or web address]. Method:[facility]'s Non-Invasive Pr enatal Screening (NIPS)test is i ntended for early screening of fe everardo aneuploidies (bothmonosomy a nd trisomy) in chromosomes 21, 18, 13, X and Y. The testutilizes [place] [employer]'s [employer] NIPT Solution v2 and whole-genomesequencing of circulating fragments of cell-free DNA (cfDNA) obt ainedfrom maternal plasma at 10 we eks gestation or later. The fetalcompon ent of cfDNA is derived from placental tissue. Paired-endseque ncing data of cfDNA are aligned with a reference genome (HG19)and karma zed by the [employer] NIPT Solution v2 alg orithm to determinefetal fraction (FF) and numerical abnor malities in chromosomes 21,18, 13, X an d Y. FF is used as a quality controller parameter for NIPSanalysis an d interpretation. This [...] a study of 2,235pregnancie s using the [employer] NIPT v2 test. T he number of [...] from pu blished medical literature.Refe r to www.[employer] Vis[employer].com/erd for additionali nformation on pre- and post-test [...] options are available. TEST ING PERFORMED AT [employer], [employer]. [address], [address], [address] [place] [address] CLIA N O: [id number] CULTURE, [id number] 11:19:56SPECIMEN NUMBER: [id number] CULTURE, URINE SPECIMEN NUMBER: [id number] SPECIMEN COMMENT: URINE SOURCE:URINE REPORT STATUS: FINAL FINAL REPORT: 11/29/2022 10-50,000 CFU/ML UROGENITAL GRZEGORZ PRESENT NO COMM ON PATHOGENSCT/NG, NAAT, [id number] 18:32:49 Test Item Value Reference Range Interpretation Comments CHLAMYDIA, NAAT, NEGATIVE NEGATIVE Testing is performed with URINE (test code Kayla ROLLY 6800/8800 = 68347) systems usingre al-time polymerase marti n reaction (PCR) method. A negative result does not exclude low level infection , specimensamplin g error, or collection erro r. GONORRHEA, NAAT, NEGATIVE NEGATIVE Testing is performed with URINE (test code Kayla ROLLY 6800/8800 = 32449) systems usingre al-time polymerase marti n reaction (PCR) method. A negative result does not exclude low level infection , specimensamplin g error, or collection erro r. VARICELLA ZOSTER [id number] 13:54:57 Test Item Value Reference Range Interpretation Comments VARICELLA ZOSTER IgG 20 INDEX SEE BELOW L INTERP RETATION VZV IgG (test code = 27107) NEGATIVE . . . . . . [...] GLUCOSE, 1 HR, GESTATIONAL SCREEN, 50 GM [id number] 09:12:10 Test Item Value Reference Range Interpretation Comments GLUCOSE 1 HR POST 50 81 MG/DL <140 UNLESS OTHERWISE GM (test code = INDICATED, A LL TESTING 2005) PERFORMED AT [facility] [employer] [address] [place] [id number] [place] [address] DIRECTOR: Elba STOREY MADINA NUMBER [id number] CAP ACCREDITATION N O. [id number] DRUG ABUSE SCREEN 10 REFLEX [id number] 06:10:44 Test Item Value Reference Range Interpretation Comments AMPHETAMINES (test NEGATIVE NEGATIVE code = 3201) BARBITURATES (test NEGATIVE NEGATIVE code = 3202) BENZODIAZEPINES (test NEGATIVE NEGATIVE code = 3203) CANNABINOIDS (test NEGATIVE NEGATIVE code = 3204) COCAINE METABOLITE NEGATIVE NEGATIVE (test code = 3205) OPIATES (test code = NEGATIVE NEGATIVE 3209) OXYCODONE (test code NEGATIVE NEGATIVE = 56072) PHENCYCLIDINE (test NEGATIVE NEGATIVE code = 3210) METHADONE (test code NEGATIVE NEGATIVE = 3207) BUPRENORPHINE (test NEGATIVE NEGATIVE code = 30543) SOURCE (test code = URINE SEE BELOW FOR 775152) THRESHOLDS AND IMPORTANT METHOD NOTES * ANALYTE [...] valid for forensic use. OBSTETRIC PANEL + [id number] 05:03:20 Test Item Value Reference Range Interpretation [...] message] (test code = 1065) The syste [employer] which generated this result transmit sergey reference [...] RBCS 0.00 K/UL 0.00-0.11 (test code = 00592) BLOOD TYPE AND RH A POSITIVE A [...] REACTIVE A INTERPRE TATION (test code = 37427) UNITS RA NGE NON-REACTIVE/NO N-IMM UNE IU/ML <10 REACTIVE/IMMUNE IU/ML >=10 HEPATITIS B SURF AG NON-REACTIVE NON-REACTIVE (test code = 2739) RPR (test code = NON-REACTIVE NON-REACTIVE 18573) RPR TITER (test NOT INDIC. NOT INDIC. code = 3500) TITER HIV 1/2 4TH GEN, NON-REACTIVE NON-REACTIVE RFLX CONF (test code = 3514) HEPATITIS C REFLEX [id number] 05:03:20 Test Item Value Reference Range Interpretation Comments HEPATITIS C ANTIBODY (test code NON-REACTIVE NON-REACTIVE = 4675) [id number] 03:42:03 Test Item Value Reference Range Interpretation Comments RPR RESULT (test code = NON-REACTIVE NON-REACTIVE 3501) RPR TITER (test code = 3500) NOT INDIC. TITER NOT INDIC. POCT GLUCOSE (AUTOMATED)2022-11-05 09:24:00 Test Item Value Reference Range Interpretation Comments POCT GLU (test code = 2544159402) 80 mg/dL 70-110 Lab Interpretation (test code = Normal 21449-5) [facility] [id number] 06:40:24 Test Item Value Reference Range Interpretation Comments MESFIN PM (test code = 3.0 ug/dL 1.7-14.0 2594848948) SUSIE (test code = SUSIE) Biotin has been reported to cause a positive bias, interpret results relative to patient's use of biotin. Lab Interpretation (test Normal code = 24676-1) [facility]2022-11-05 05:40:14 Test Item Value Reference Range Interpretation Comments POCT GLU (test code = 6056458326) 103 mg/dL 70-110 Lab Interpretation (test code = Normal 16755-1) [facility] [id number] 03:07:32 Test Item Value Reference Range Interpretation Comments TSH (test code = See_Comment L [Automated message] 1528145215) The system [employer] generated this result transmitted ref erence range: 0.45 - 4 .70 mIU/L. The refe rence range was not u sed to interpret this result as normal/abnor mal. Lab Interpretation (test Abnormal code = 16200-1) [facility] [id number] 02:53:49 Test Item Value Reference Range Interpretation Comments FREE T4 (test code = 1.14 See_Comment [Autom ated message] [id number]) The system whic h generated this result transmitted ref erence range: 0.78 - 2 .20 ng/dL:. The ref erence range was not u sed to interpret this result as normal/abnor mal. Lab Interpretation (test Normal code = 08193-9) [facility] [id number] 02:53:34 Test Item Value Reference Range Interpretation Comments FREE T3 (test code = 3809597998) 4.36 pg/mL 2.77-5.27 Lab Interpretation (test code = Normal 37964-6) [facility] GLUCOSE (AUTOMATED)2022-11-04 23:45:31 Test Item Value Reference Range Interpretation Comments POCT GLU (test code = 85 mg/dL 70-110 Notifi ed Provider [id number]) Lab Interpretation (test Normal code = 88629-6) [facility] WITH [id number] 22:06:58 Test Item Value Reference Range Interpretation Comments WBC (test code = 9.08 See_Comment [Automated 9690-2) message] The sy stem which generated this result transmitted reference range : 4.30 - 11.10 10*3/?L. The reference range was not used to interpret this result as normal/abnormal . RBC (test code = 3.97 See_Comment [Automated 459-8) message] The sy stem which generated this [...] RDW-SD (test code = 42.1 fL 39.0-49.9 60090-3) RDW-CV (test code = 12.9 % 12.0-15.5 788-0) PLT (test code = 263 See_Comment [Automated 777-3) message] The sy stem which generated this result transmitted reference range : 166 - 358 10*3/ ?L. The reference r sj was not used to interpret this result as normal/abnormal . MPV (test code = 10.9 fL 9.5-12.9 29072-3) NRBC/100 WBC (test 0.0 See_Comment [Automat ed code = 3754502913) message] The system which generated this result transmitted reference range : 0.0 - 10.0 /100 WBCs. The refer ence range was not u sed to interpret th is result as normal/abnormal . NRBC x10^3 (test code See_Comment [Auto mated = 1962784549) message] The s ystem which generated this result transmitted reference range : 10*3/?L. The reference range was not used to interpret this result as normal/abnormal . GRAN MAT (NEUT) % 70.6 % (test code = 770-8) IMM GRAN % (test code 0.30 % = 3399302075) LYMPH % (test code = 17.5 % 736-9) MONO % (test code = 8.5 % 5905-5) EOS % (test code = 2.8 % 713-8) BASO % (test code = 0.3 % 706-2) GRAN MAT x10^3(ANC) 6.41 10*3/uL 1.88-7.09 (test code = 8048557368) IMM GRAN x10^3 (test 0.03 10*3/uL 0.00-0.06 code = 6336398977) LYMPH x10^3 (test code 1.59 10*3/uL 1.32-3.29 = 731-0) MONO x10^3 (test code 0.77 10*3/uL 0.33-0.92 = 742-7) EOS x10^3 (test code = 0.25 10*3/uL 0.03-0.39 711-2) BASO x10^3 (test code 0.03 10*3/uL 0.01-0.07 = 704-7) Lab Interpretation Abnormal (test code = 91041-6) [facility], [id number] 10:04:28SPECIMEN NUMBER: [id number] CULTURE, URINE SPECIMEN NUMBER: [id number] SPECIMEN COMMENT: URINE SOURCE:URINE REPORT STATUS: FINAL [...] ATED, ALL TESTING [facility] [place] [place] [address] LABORAT[address] DIRE CTOR: CHRIS PATEL M.D. CLIA NUMBER [id number] CAP ACCREDITATION N O. [id number] Consult Notes Date/Time Note Provider Source 2022-11-05 11:00:31 [id number]:00:31Associated IM-CARDIOVASCU [facility] Order(s): CONSULT DISEASE STAFF CARDIOLOGY [facility] Cardiology ConsultPCP: PATIENT DOES NOT HAVE A PCP Date of Service: 11/05/2022HIEF COMPLAINT/reason for consult: Syncope HISTORY OF PRESENT ILLNESSThis is a 17 years old Female without significant medical history who came [facility] due to syncope. She is 13 weeks [...] Billings MD, FACC, FASEAssociate ProfessorDivision of Cardiovascular MedicineMethodist McKinney Hospital 23017-8Krvlrct [id number]:03:31Consult noteTXT1.2.840.672924.1.13.104.2. 7.2.061794|[id number] for patient vtkk66703-7Xrgfsrd noteLNIM-CARDIOVASCULAR DISEASE STAFFIM-CARDIOVASCULAR DISEASE STAFFUTDR. [facility] - [address] VrfdVaymquhezOtjymtuojUZIO3547677 043JNMFSFMSNZLXYMQJTUJHHB7009-34- 10T1:03:311.2.840.347069.1.72.3. 15|1.2.840.069712.1.13.104.2.7.2. [id number] 2022-11-05 10:54:29 6797-88-90J87:54:29Associated [facility] Order(s): CONSULT OB/GYN TRIAGE HISTORY & PHYSICALIDENTIFYING DATACopurnima Adams is 17 year old, /White, Unknown, female with CARL Not found.. : 2005MRN: [id number] Care Physician: PATIENT DOES NOT HAVE A [...] found for: "RUBG" No results found for: "WNTC7IA" No results found for: "CGBS" HGB Date [...] dischargedThank [place] [address]-3Vgeriia [id number]:50:19Consult noteTXT1.2.840.743844.1.13.104.2. 7.2.863957|[id number] for patient lven48798-1Czsdomt [address]vdGalvestonGalvestonTXTX[address] 743QSDPVIXODJUEYBYUXPUZUT4780-89- 10T12:50:191.2.840.758522.1.72.3. 15|1.2.840.381279.1.13.104.2.7.2. [id number] History and Physical Notes Date/Time Note Provider Source 2022-11-04 23:15:50 0755-86-74S43:15:50Formatting IM-INTERNAL [facility] of this note is different STAFF from [...] Status: fullDisposition: obs S igned:Roman Holt MD11/04/2022 11139-4Sbwtxjh and physical gwrvUF3825-33-34N07:19:45Hist ory and physical noteTXT1.2.840.153869.1.13.10 4.2.7.2.884460|[id number] ailable for patient vtyv08976-2Yshtbso and physical noteLNIM-INTERNAL MEDICINE STAFFIM-INTERNAL MEDICINE STAFF[address] AjylEdkhmhfeySomlyxivxASMK360 7609969CGBUNENIECFADQOJKXOMQM 0042-12-52I94:19:451.2.840.11 4350.1.72.3.15|1.2.840.957520 .1.13.104.2.7.2.727879_189547 3387
[2023-01-08] MEDS ORDERED: ACETAMINOPHEN 500 MG TAB ONE (15:00)
[2023-01-08 15:23] LABS: Absolute Lymphocytes (CBC) 1.8 K/uL (0.7-4.9); Lymphocytes % 14.8 % (15.3-44.8); MCV 89.3 fL (80-100); MPV 8.7 fL (7.6-11.3); Platelets 260 thou/uL (152-406); RBC Red Blood Cell Count 3.35 M/uL (3.86-4.86)
[2023-01-08 15:29] LABS: Potassium 3.4 mEq/L (3.5-5.1)
--- NOTE | 2023-01-08 15:35 | RAD REPORT ---
EXAM DESCRIPTION: US - OB Limited - 01/08/2023 3:25 pm CLINICAL HISTORY: decreased movement;Abd cramping, Pain and swelling COMPARISON: OB Limited dated 10/15/2022 FINDINGS: A limited examination was requested by the emergency room. A single breech presenting gestation is identified. Heart rate normal. Estimated gestational age 24 w eeks 4 days. Placenta is anterior without evidence of abruption or previa. Normal NIALL 17 centimeters. No gross maternal adnexa finding of concern.
[2023-01-08] MEDS ORDERED: NA CHLORIDE 0.9% 1,000 ML ONE (16:12)
[2023-01-08 17:07] LABS: Specific Gravity 1.015 (1.005-1.030); Urine Bacteria <20 /HPF (<20); Urine Bilirubin NEGATIVE (Negative); Urine Blood Negative (Negative); Urine Clarity Turbid (Clear); Urine Color Light-Yellow (Yellow); Urine Glucose 4+ (Negative); Urine Protein NEGATIVE (Negative); Urine RBC <5 /HPF (None Seen); Urine Urobilinogen Normal (Normal); Urine pH 6.5 (5.0-7.0)
[2023-01-08 17:08] LABS: Urine Crystals Unidentified Few /HPF (None Seen); Urine Mucus Slight /HPF (None Seen)
--- NOTE | 2023-01-08 17:15 | ER ---
Nurse's Notes [facility] Name: Janeth Arteaga Age: 17 yrs Sex: Female : 2005 Arrival Date: 01/08/2023 Time: 14:31 Bed 7 Private MD: Diagnosis: UTI/ Urinary tract infection, site not specified;25 weeks gestation of Presentation: 01/08 14:38 Chief complaint: Dysuria and urinary frequency x 4 days, right sided abdominal pain x 2 hb days. Pt is 25 weeks , , CARL 04/26/23. Coronavirus screen: At this time, the client does not indicate any symptoms associated with coronavirus-19. Ebola Screen: No symptoms or risks identified at this time. Risk Assessment: Do you want to hurt yourself or someone else? Patient reports no desire to harm self or others. Onset of symptoms was January 05, 2023. 14:38 Method Of Arrival: Ambulatory hb 14:38 Acuity: PHILLIP 3 hb 17:32 Initial Sepsis Screen: Does the patient meet any 2 criteria? No. Patient's initial tm6 sepsis screen is negative. Does the patient have a suspected source of infection? No. Patient's initial sepsis screen is negative. Historical: - Allergies: 14:43 Clindamycin; hb - Immunization history:: Adult Immunizations up to date. - Social history:: Smoking status: Patient denies any tobacco usage or history of. Screenin:04 [facility] ED Fall Risk Assessment (Adult) History of falling in the last 3 months, tm6 including since admission No falls in past 3 months (0 pts). Abuse screen: Denies threats or abuse. Denies injuries from another. Nutritional screening: No deficits noted. Tuberculosis screening: No symptoms or risk factors identified. Assessment: 15:00 General: Appears in no apparent distress. Behavior is calm, cooperative, appropriate tm6 for age. Pain: Complains of pain in right lower quadrant Pain currently is 2 out of 10 on a pain scale. Quality of pain is described as stabbing, Pain began 2-3 days ago. Aggravated by urinating. Neuro: Level of Consciousness is awake, alert, obeys commands, Oriented to person, place, time, situation. Cardiovascular: Capillary refill < 3 seconds Patient's skin is warm and dry. Respiratory: Airway is patent Respiratory effort is even, unlabored, Respiratory pattern is regular, symmetrical. GI: Abdomen is round. : Reports pain with urination. EENT: No signs and/or symptoms were reported regarding the EENT system. Derm: No signs and/or symptoms reported regarding the dermatologic system. Musculoskeletal: No signs and/or symptoms reported regarding the musculoskeletal system. 16:08 Reassessment: Patient appears in no apparent distress at this time. Patient and/or tm6 family updated on plan of care and expected duration. Pain level reassessed. Patient is alert, oriented x 3, equal unlabored respirations, skin warm/dry/pink. 17:00 Reassessment: Patient appears in no apparent distress at this time. Patient and/or tm6 family updated on plan of care and expected duration. Pain level reassessed. Patient is alert, oriented x 3, equal unlabored respirations, skin warm/dry/pink. Vital Signs: 14:38 BP 130 / 94; Pulse 109; Resp 18; Temp 101.5(O); Pulse Ox 100% on R/A; Weight 77.11 kg; hb Height 4 ft. 11 in. ; Pain 5/10; 14:50 Temp 98(O); tm6 15:00 BP 135 / 84; Pulse 107; Resp 20; Temp 98.5(O); Pulse Ox 99% on R/A; Pain 2/10; tm6 15:03 Temp 98.6(O); tm6 16:07 BP 102 / 58; Pulse 108; Resp 20; Temp 98.5(O); Pulse Ox 100% ; tm6 17:00 BP 116 / 72; Pulse 98; Temp 98.5(O); Pulse Ox 100% ; tm6 14:38 Body Mass Index 34.34 (77.11 kg, 149.86 cm) - Percentile 96.8 % hb 14:38 Pain Scale: Adult hb 15:00 Pain Scale: Adult tm6 ED Course: 14:32 Patient arrived in ED. rg4 14:34 Vida Flores FNP-C is PHCP. kb 14:34 Dalton Roth MD is Attending Physician. kb 14:43 Triage completed. hb 14:43 Arm band placed on. hb 14:45 Jose Donato RN is Primary Nurse. tm6 15:02 Blood Culture Adult (2) Sent. ds4 15:02 Basic Metabolic Panel Sent. ds4 15:02 CBC with Diff Sent. ds4 15:02 Inserted saline lock: 22 gauge in right forearm, using aseptic technique. Blood ds4 collected. 15:04 Patient has correct armband on for positive identification. Bed in low position. Call tm6 light in reach. Side rails up X 1. Provided Education on: need for lab draw. Client placed on continuous cardiac and pulse oximetry monitoring. NIBP monitoring applied. Door closed. Noise minimized. 15:04 No provider procedures requiring assistance completed. tm6 15:27 OB Limited In Process Unspecified. EDMS 17:32 IV discontinued, intact, bleeding controlled, No redness/swelling at site. Pressure tm6 dressing applied. Administered Medications: 15:10 Not Given (oral temperature taken 3 times with different thermometers: 98.6, 98.5, tm6 98.0. Per DIRECTOR INSTRUCTIONAL MATERIAL, tylenol not needed.): [id number] mg PO once 16:02 Drug: NS 0.9% IV 1000 ml IV at 1000 ml once Route: IV; Rate: 1000 ml; Site: right ld1 forearm; 16:31 Follow up: Response: No adverse reaction; IV Intake: 1000ml tm6 Medication: 15:04 VIS not applicable for this client. tm6 Intake: 16:31 IV: 1000ml; Total: 1000ml. tm6 Outcome: 17:14 Discharge ordered by . kb 17:32 Discharged to home ambulatory, tm6 17:32 Condition: stable 17:32 Discharge instructions given to patient, Instructed on discharge instructions, follow up and referral plans. medication usage, Demonstrated understanding of instructions, follow-up care, medications, Prescriptions given X 1, 17:33 Patient left the ED. tm6 Signatures: Dispatcher [employer] EDMO Vida Flores, PRISON WARDENTomasaC PRISON WARDEN-Tai Gastelum ds4 Terrie Wallis, Kiara Adams RN rg4 Migdalia Perez RN RN ld1 Jose Donato RN RN tm6
--- NOTE | 2023-01-08 17:15 | EDPHYS ---
Physician Documentation [facility] Name: Janeth Arteaga Age: 17 yrs Sex: Female : 2005 Arrival Date: 01/08/2023 Time: 14:31 Bed 7 Private MD: ED Physician Dalton Roth HPI: 01/08 16:34 This 17 yrs old Female presents to ER via Ambulatory with complaints of Urinary kb Problem, Decreased Movement 25 weeks . 16:34 Patient is a 17-year-old female who is currently 25 weeks who presents for kb decreased movement, dysuria, urinary frequency, urinating small amounts. States pain now radiates up to right side of abdomen. Denies fever. States symptoms started about 4 days ago.. Historical: - Allergies: 14:43 Clindamycin; hb - Immunization history:: Adult Immunizations up to date. - Social history:: Smoking status: Patient denies any tobacco usage or history of. ROS: 16:33 Constitutional: Negative for fever, chills, and weight loss, kb 16:33 Abdomen/GI: Positive for abdominal pain, 16:33 : Positive for urinary symptoms, urinary frequency, small amounts, burning with urination, difficulty urinating, 16:33 All other systems are negative, Exam: 16:33 Constitutional: This is a well developed, well nourished patient who is awake, alert, kb and in no acute distress. Head/Face: Normocephalic, atraumatic. ENT: Moist Mucous membranes Cardiovascular: Regular rate Respiratory: Respirations even and unlabored. No increased work of breathing. Talking in full sentences Abdomen/GI: Soft, non-tender. No distention Back: No spinal tenderness. No costovertebral tenderness. Full range of motion. Skin: Warm, dry with normal turgor. Normal color. MS/ Extremity: Pulses equal, no cyanosis. Neurovascular intact. Full, normal range of motion. Neuro: Awake and alert, GCS 15, oriented to person, place, time, and situation. Moves all extremities. Normal gait. Vital Signs: 14:38 BP 130 / 94; Pulse 109; Resp 18; Temp 101.5(O); Pulse Ox 100% on R/A; Weight 77.11 kg; hb Height 4 ft. 11 in. ; Pain 5/10; 14:50 Temp 98(O); tm6 15:00 BP 135 / 84; Pulse 107; Resp 20; Temp 98.5(O); Pulse Ox 99% on R/A; Pain 2/10; tm6 15:03 Temp 98.6(O); tm6 16:07 BP 102 / 58; Pulse 108; Resp 20; Temp 98.5(O); Pulse Ox 100% ; tm6 17:00 BP 116 / 72; Pulse 98; Temp 98.5(O); Pulse Ox 100% ; tm6 14:38 Body Mass Index 34.34 (77.11 kg, 149.86 cm) - Percentile 96.8 % hb 14:38 Pain Scale: Adult hb 15:00 Pain Scale: Adult tm6 MDM: 14:34 Patient medically screened. kb 16:34 Data reviewed: vital signs, nurses notes. kb 16:34 Differential diagnosis: UTI, pyelonephritis, nephrolithiasis, demise. kb 17:14 Counseling: I had a detailed discussion with the patient and/or guardian regarding the kb historical points, exam findings, and any diagnostic results supporting the discharge/admit diagnosis, lab results, radiology results, the need for outpatient follow up, an OB/Gyne specialist, to return to the emergency department if symptoms worsen or persist or if there are any questions or concerns that arise at home. 01/08 14:40 Order name: Urinalysis w/ reflexes; Complete Time: 17:10 kb 01/08 14:40 Order name: CBC with Diff; Complete Time: 15:31 kb 01/08 14:40 Order name: Basic Metabolic Panel; Complete Time: 15:31 kb 01/08 14:44 Order name: Blood Culture Adult (2) kb 01/08 14:48 Order name: OB Limited; Complete Time: 15:37 EDMS 01/08 14:40 Order name: IV Start; Complete Time: 15:02 kb Administered Medications: 15:10 Not Given (oral temperature taken 3 times with different thermometers: 98.6, 98.5, tm6 98.0. Per SPRAY FOAM INSTALLER, tylenol not needed.): [id number] mg PO once 16:02 Drug: NS 0.9% IV 1000 ml IV at 1000 ml once Route: IV; Rate: 1000 ml; Site: right ld1 forearm; 16:31 Follow up: Response: No adverse reaction; IV Intake: 1000ml tm6 Disposition: 17:36 Co-signature as Attending Physician, Dalton Roth MD I reviewed the patient's care rn provided by the Advanced Practice Provider and agree with the diagnosis and treatment plan. Disposition Summary: 01/08/23 17:14 Discharge Ordered Notes: Location: Home kb Condition: Stable kb Diagnosis - UTI/ Urinary tract infection, site not specified kb - 25 weeks gestation of kb Followup: kb - With: Emergency Department - When: As needed - Reason: Worsening of condition Followup: kb - With: Private Physician - When: 2 - 3 days - Reason: Recheck today's complaints, Continuance of care, Re-evaluation by your physician Discharge Instructions: - Discharge Summary Sheet kb - and Urinary Tract Infection kb Forms: - Medication Reconciliation Form kb - Thank You Letter kb - Antibiotic Education kb - Prescription Opioid Use kb - Patient Portal Instructions kb - Leadership Thank You Letter kb Prescriptions: - Macrobid 100 mg Oral capsule - take 1 capsule ORAL route every 12 hours for 5 days; 10 capsule; Refills: 0, kb Product Selection Permitted Signatures: Dispatcher [employer] EDMS Vida Flores, BICYCLE TAXI DRIVER-C BICYCLE TAXI DRIVER-Ckb Dalton Roth MD MD rn Baxter, Heather RN RN Migdalia Perez, RN RN ld1 Jose Donato RN RN tm6 Corrections: (The following items were deleted from the chart) 14:46 14:44 BLOOD CULTURE*+BA.LAB.BRZ ordered. EDMS EDMS 14:48 14:41 OB Complete+US.RAD.BRZ ordered. EDMS EDMS
[2023-01-08 18:01] VITALS: TEMP 98.5; O2SAT 100
[2023-01-08 18:02] VITALS: BP 116/72
== END 2023-01-08 17:33 | disposition home or self-care (01) ==
LOC: ER 14:31
DX: O23.42 Unspecified infection of urinary tract in pregnancy, second trimester (principal); N39.0 Urinary tract infection, site not specified; Z3A.25 25 weeks gestation of pregnancy; Z88.3 Allergy status to other anti-infective agents
CPT/HCPCS: 87040 ×2; 85025; 81001; 80048; 36415; 76815; 99284; J7030

== ENCOUNTER → 2023-03-08 | Emergency (ER) | payer BC, OTHER ==
[~2023-03-08] MED LIST: ACETAMINOPHEN 325 MG TABLET PO PRN; ALBUTEROL 2.5 MG/3 ML NEB SOL NEB PRN; HEPARIN 5000 UNIT/ML 1 ML VIAL SQ SCH; NA CHLORIDE 0.9% 1,000 ML IV SCH; ONDANSETRON 4 MG/2 ML VIAL IV PRN
--- OUTSIDE RECORDS SUMMARY | 2023-03-08 23:08 | XMS REPORT | Continuity of Care Document ---
Author Name Unknown Address [address] [facility]. [address] [place] [id number] [facility] Address [address] [facility] 1 [address] [place] [address] Care Team Providers Care Beading Installer Name Role Phone PCP, PATIENT DOES NOT HAVE A Primary Care Physic eh Unavailable CARISSA SUGGS Attending Clinician Unavailable Carissa Suggs MD Attending Clinician [phone] Doctor Unassigned, [place] Attending Clinician U DUSTIN Nixon Attending Clinician DUSTIN Herrera Attending Clinician Ruby Gavin MD Attending Clinician [phone] Giovana Langston DO Attending Clinician [phone] GIOVANA LANGSTON Attending Clinician Unavailable CARISSA SUGGS Admitting Clinician Unavailable Carissa Suggs MD Admitting Clinician [phone] DUSTIN STAPLES Admitting Clinician Giovana Lehman DO Admitting Clinician [phone] GIOVANA LANGSTON Admitting Clinician Unavailable Payers Payer Name Policy Type Policy Number Effective Date Expirati on Date Source [facility] [id number] 2021 00:00:00 [employer] [facility] STAR [id number] 2023 00:00:00 Problems Condition Name Condition Details Condition Category Status Onset Date Resolution Date Last Treatment Date Treating Clinician Comments Source Daljit Moya's contractio n [place] Hick's contractio n Disease Active 1-04 00:00: 00 [facility] High-risk in third trimester High-risk in third trimester Disease Active 2022-02 00:00: 00 [facility] 13 weeks gestation of 13 weeks gestation of Disease Active - 00:00: 00 [facility] Syncope, unspecifie d syncope type Syncope, unspecifie d syncope type Disease Active 11-04 00:00: 00 [facility] Obesity (BMI 30-39.9) Obesity (BMI 30-39.9) Disease Active 11-04 00:00: 00 [facility] Allergies, Adverse Reactions, Alerts Allergy Name Allergy Type Status Severity Reaction(s) Onset Date Inactive Date Treating Clinician Comments Source Clindamy yanna Propensi ty to adverse reaction s Active Rash 11-04 00:00: 00 [facility] CLINDAMY YANNA DRUG INGREDI Active Rash 11-04 00:00: 00 [facility] NO KNOWN ALLERGIE S Drug Class Active [facility] Social History Social Habit Start Date Stop Date Quantity Comments Source ASSERTION 2022-08-03 00:00:00 [facility] Gender identity [facility] Sexual orientation U [facility] Alcohol intake 2023-03-01 00:00:00 2023-03-01 00:00:00 Ex-drinker (finding) [facility] History of Social function 2023-03-01 00:00:00 2023-03-01 00:00:00 [facility] Tobacco use and exposure 2023-02-15 00:00:00 2023-02-15 00:00:00 Smokeless tobacco non-user [facility] Alcohol Comment 2023-02-15 00:00:00 2023-02-15 00:00:00 [facility] Sex Assigned At 2005 00:00:00 2005 00:00:00 [facility] Smoking Status Start Date Stop Date Source Tobacco smoking consumption unknown [facility] Never smoked tobacco [facility] Medications Ordered Medication Name Filled Medication Name Start Date Stop Date Current Medication? Ordering Clinician Indication Dosage Frequency Signature (SIG) Comments Components Source PNV no.95/dayana us fum/folic ac ( ORAL) 2022-02 10:11: 45 Yes Take by mouth. [facility] ferrous sulfate (IRON ORAL) 2022-02 10:11: 45 Yes Take by mouth. [facility] PNV no.95/dayana us fum/folic ac ( ORAL) 2022-02 10:11: 45 Yes Take by mouth. [facility] ferrous sulfate (IRON ORAL) 2022-02 10:11: 45 Yes Take by mouth. [facility] PNV no.95/dayana us fum/folic ac ( ORAL) 2022-02 10:11: 45 Yes Take by mouth. [facility] ferrous sulfate (IRON ORAL) 2022-02 10:11: 45 Yes Take by mouth. [facility] NaCl 0.9% (NS) IV infusion 1,000 mL 11-05 00:00: 00 Yes 1000mL at 125 mL/hr, IV Infusion, CONTINUOUS , Starting on 11/04/22 at 1900, Until Discontinu ed, Routine [facility] vitamin w/FA tablet 11-05 00:00: 00 12-06 04:59 :00 No [id number] 1{tbl} Take 1 tablet by mouth in the morning for 30 days. [facility] acetaminoph en (TYLENOL) tablet 650 mg 11-04 23:53: 14 Yes 650mg 650 mg, Oral, Q6HPRN, Starting on 11/04/22 at 1853, Until Discontinu ed, Routine, Pain (scale 1-3) [facility] NaCl 0.9% (NS) bolus infusion 1,000 mL 11-04 21:45: 00 11-04 23:44 :00 No 1000mL at 999 mL/hr, 1,000 mL, IV Infusion, ONCE, 1 dose, [facility] 1645[facility] Ordered Immunization Name Filled Immunization Name Date Status Comments Source Influenza Virus Vaccine Quad IM, Preserv and ABX Free 6 MO-64 YRS (FLUCELVAX) Unknown Completed [facility] TDAP Unknown Completed [facility] Influenza Virus Vaccine Quad IM, Preserv and ABX Free 6 MO-64 YRS (FLUCELVAX) Unknown Completed [facility] TDAP Unknown Completed [facility] Influenza Virus Vaccine Quad IM, Preserv and ABX Free 6 MO-64 YRS (FLUCELVAX) Unknown Completed [facility] TDAP Unknown Completed [facility] Vital Signs Vital Name Observation Time Observation Value Comments S ource Systolic blood pressure 2023-03-01 21:30:00 125 mm[Hg] [facility] Diastolic blood pressure 2023-03-01 21:30:00 77 mm[Hg] [facility] Heart rate 2023-03-01 21:30:00 110 /min [facility] Body height 2023-03-01 21:30:00 149.9 cm [facility] Body weight 2023-03-01 21:30:00 86.728 kg [facility] BMI 2023-03-01 21:30:00 38.62 kg/m2 [facility] Systolic blood pressure 2023-02-15 16:10:00 127 mm[Hg] [facility] Diastolic blood pressure 2023-02-15 16:10:00 77 mm[Hg] [facility] Heart rate 2023-02-15 16:10:00 118 /min [facility] Body temperature 2023-02-15 16:10:00 36.44 Riri [facility] Body height 2023-02-15 16:10:00 149.9 cm [facility] Body weight 2023-02-15 16:10:00 84.55 kg [facility] BMI 2023-02-15 16:10:00 37.65 kg/m2 [facility] Systolic blood pressure 2023-02-01 02:30:00 96 mm[Hg] [facility] Diastolic blood pressure 2023-02-01 02:30:00 49 mm[Hg] [facility] Heart rate 2023-02-01 02:30:00 97 /min [facility] Oxygen saturation in Arterial blood by Pulse oximetry 2023-02-01 02:30:00 99 /min [facility] Body temperature 2023-02-01 01:13:00 37.11 Riri [facility] Respiratory rate 2023-02-01 01:13:00 16 /min [facility] Body height 2023-02-01 00:34:00 149.9 cm [facility] Body weight 2023-02-01 00:34:00 83.689 kg [facility] BMI 2023-02-01 00:34:00 37.26 kg/m2 [facility] Systolic blood pressure 2022-11-05 14:25:00 112 mm[Hg] [facility] Diastolic blood pressure 2022-11-05 14:25:00 62 mm[Hg] [facility] Heart rate 2022-11-05 14:25:00 78 /min [facility] Body temperature 2022-11-05 14:25:00 36.89 Riri [facility] Oxygen saturation in Arterial blood by Pulse oximetry 2022-11-05 14:25:00 99 /min [facility] Respiratory rate 2022-11-05 01:00:00 18 /min [facility] Body height 2022-11-04 20:48:00 149.9 cm [facility] Body weight 2022-11-04 20:48:00 68.04 kg [facility] BMI 2022-11-04 20:48:00 30.30 kg/m2 [facility] Procedures Procedure Date / Time Performed Performing Clinician Source ASSIGNMENT OF BENEFITS 2023-03-01 21:04:29 Docto r Unassigned, [place] [facility] POCT URINALYSIS W/O SPECIFIC GRAVITY 2023-03-01 00:00:00 Carissa Suggs [facility] TDAP VACCINE, >11 YRS, IM 2023-02-15 16:14:21 Suggs, Carissa [facility] FLU VACC (), 6 MO-64 YRS, .5ML, IM, QUAD (FLUCELVAX) 2023-02-15 16:14:21 Carissa Suggs [facility] POCT URINALYSIS W/O SPECIFIC GRAVITY 2023-02-15 00:00:00 Carissa Suggs [facility] ADC ONLY - FERN TEST 2023-02-01 01:51:00 Carissa Suggs [facility] CONSENT/REFUSAL FOR DIAGNOSIS AND TREATMENT 2023-02-01 00:30:22 Doctor Unassigned, [place] [facility] TRANSTHORACIC ECHO (TTE) COMPLETE 2022-11-05 13:34:00 Giovana Langston [facility] POCT GLUCOSE (AUTOMATED) 2022-11-05 09:22:00 Carlotta Langston [facility] POCT GLUCOSE (AUTOMATED) 2022-11-05 05:39:00 Carlotta Langston [facility] CORTISOL PM SERUM 2022-11-05 01:20:00 Giovana Langston [facility] FREE T4 2022-11-05 01:20:00 Giovana Langston [facility] THYROID STIMULATING HORMONE 2022-11-05 01:20:00 Giovana Langston [facility] FREE T3 2022-11-05 01:20:00 Giovana Langston [facility] POCT GLUCOSE (AUTOMATED) 2022-11-04 23:44:00 Carlotta Gaines [facility] TROPONIN I 2022-11-04 21:32:00 Ruby Gaines [facility] HEPATIC FUNCTION PANEL (39429) (ALB,T.PRO,BILI T,BU/BC,ALT,AST,ALK PHOS) 2022-11-04 21:32:00 Ruby Gaines [facility] BASIC METABOLIC PANEL (NA, K, CL, CO2, GLUCOSE, BUN, CREATININE, CA) 2022-11-04 21:32:00 Ruby Gaines [facility] TOTAL BETA HCG ASSAY 2022-11-04 21:32:00 Nighat Gaines [facility] URINE DRUG (IMMUNOASSAY) - COMPREHENSIVE DRUG SCREEN 2022-11-04 21:32:00 Ruby Gaines [facility] CBC WITH DIFF 2022-11-04 21:32:00 Ruby Gaines [facility] PROTHROMBIN TIME / INR 2022-11-04 21:32:00 Sebastian Gaines [facility] ACTIVATED PARTIAL THRMPLAS GENOVEVA 2022-11-04 21:32:00 Ruby Gaines [facility] URINALYSIS 2022-11-04 21:32:00 Ruby Gaines [facility] N-TERMINAL PRO-BNP 2022-11-04 21:32:00 Ruby Gaines [facility] NOTICE OF PRIVACY PRACTICES 2022-11-04 20:35:05 Doctor Unassigned, [place] [facility] CONSENT/REFUSAL FOR DIAGNOSIS AND TREATMENT 2022-11-04 20:34:07 Doctor Unassigned, [place] [facility] Encounters Start Date/Time End Date/Time Encounter Type Admission Type Attending [facility] Facility Care Department Encounter ID Source 2023-03-15 15:15:00 2023-03-15 15:15:00 Outpatient R CARISSA SUGGS [facility] [id number] [facility] 2023-03-01 15:30:00 2023-03-01 15:52:51 Outpatient R CARISSA SUGGS [facility] [id number] [facility] 2023-03-01 15:30:00 2023-03-01 15:52:51 Routine Visit Car[facility] .[id number] [facility] 2023-03-01 00:00:00 2023-03-01 00:00:00 Orders Only Doctor Unassigned, [place] [address][id number] [facility] 2023-02-15 10:00:00 2023-02-15 10:47:34 Initial Visit Suggs, Carissa Cam [facility] [id number] [facility] 2023-02-15 10:00:00 2023-02-15 10:47:34 Outpatient R CARISSA SUGSG [facility] [id number] [facility] 2023-01-31 18:37:00 2023-01-31 21:25:00 Outpatient X CARISSA SUGGS [facility] [id number] [facility] 2023-01-31 18:37:00 2023-01-31 21:25:00 Emergency Carissa Suggs [facility] [id number] [facility] 2023-01-01 14:33:00 2023-01-01 16:05:00 Outpatient X PATEL-YUKI S, DUSTIN PATEL-YUKI S, DUSTIN [facility] [id number] [facility] 2022-11-04 15:49:00 2022-11-05 15:10:00 Emergency Ruby Gaines [facility] [id number] [facility] 2022-11-04 15:49:00 2022-11-05 15:10:00 Outpatient X GIOVANA LANGSTON [facility] [id number] [facility] Results Test Description Test Time Test Comments Results Result Co mments Source [facility] w/o Specific [id number] 16:11:00* Test Item Value Reference Range Interpretation Comme nts POCT PH U (test code = 3254) n/a 5-8 POCT U LEUK EST (test code = 3263) n/a Negative - Negative POCT U NIT (test code = 3262) n/a Negative - Negati ve POCT U PROT (test code = 3259) Negative Negative - Negat zeyad POCT U GLU (test code = 3256) 50 Negative - Negati ve POCT U KETONE (test code = 3258) n/a Negative - Neg ative POCT U BLD (test code = 3257) n/a Negative - Negati ve [facility] DNA [id number] 14:35:53 * Test Item Value Reference Range Interpretation Comme nts BRENDA SPECIES (test code = 17249) NEGATIVE NEGATIVE G. VAGINALIS (test code = ) POSITIVE NEGATIVE A T. VAGINALIS (test code = ) NEGATIVE NEGATIVE Note: The BD [facility] VPIII Microbial Identification Testis a DNA probe test intended for use in the detectionand identification of Brenda species, Gardnerellavaginalis and Trichomonas vaginalis nucleic acid. UNLESS OTHERWISE INDICATED, ALL TESTING PERFORMED AT [facility] [address] [place] [address] CATERING DIRECTOR: CHRIS GALVIN M.D. CLIA NUMBER [id number] [place]. [id number] CULTURE, [id number] 11:58:07SPECIMEN NUMBER: [id number] CULTURE, URINE SPECIMEN NUMBER: [id number] SPECIMEN COMMENT: URINE SOURCE: URINE REPORT STATUS: FINAL FINAL REPORT: 02/01/2023 50-100,000 CFU/ML UROGENITAL GRZEGORZ PRESENT NO C OMMON PATHOGENSCT/NG, NAAT, [id number] 19:08:39* Test Item Value Reference Range Interpretation Comme nts CHLAMYDIA, NAAT, URINE (test code = 49264) NEGATIVE NEGATIVE Testing is perfo rmed with Kayla ROLLY 6800/8800 systems usingreal-time polymerase chain reaction (PCR) method. A negative result does not exclude low level infection, specimensampling error, or collection error. GONORRHEA, NAAT, URINE (test code = 30724) NEGATIVE NEGATIVE Testing is perfo rmed with Kayla ROLLY 6800/8800 systems usingreal-time polymerase chain reaction (PCR) method. A negative result does not exclude low level infection, specimensampling error, or collection error. DRUG ABUSE SCREEN 10 REFLEX [id number] 07:37:16* Test Item Value Reference Range Interpretation Comme nts AMPHETAMINES (test code = 3201) NEGATIVE NEGATIVE BARBITURATES (test code = 3202) NEGATIVE NEGATIVE BENZODIAZEPINES (test code = 3203) NEGATIVE NEGATIVE CANNABINOIDS (test code = 3204) NEGATIVE NEGATIVE COCAINE METABOLITE (test code = 3205) NEGATIVE NEGATIVE OPIATES (test code = 3209) NEGATIVE NEGATIVE OXYCODONE (test code = 63092) NEGATIVE NEGATIVE PHENCYCLIDINE (test code = 3210) NEGATIVE NEGATIVE METHADONE (test code = 3207) NEGATIVE NEGATIVE BUPRENORPHINE (test code = 64349) NEGATIVE NEGATIVE SOURCE (test code = 306573) URINE SEE BELOW FO R THRESHOLDS AND IMPORTANT METHOD NOTES ANALYTE SCREENING CUTOFF CONFIRMATORY CUTOFF AMPHETAMINES 500 NG/ML 100 NG/MLBARBITURATES 200 NG/ML 100 NG/MLBENZODIAZEPINES 200 NG/ML 100 NG/MLCANNABINOIDS (THC) 20 NG/ML 15 NG/MLCOCAINE METABOLITES 150 NG/ML 100 NG/MLOPIATE METABOLITES 300 NG/ML 100 NG/MLOXYCODONE 100 NG/ML 100 NG/MLPHENCYCLIDINE (PCP) 25 NG/ML 25 NG/MLMETHADONE 300 NG/ML 100 NG/MLBUPRENORPHINE 5 NG/ML 5 NG/ML NOTE: Screening methodology is qualitative Enzyme Immunoassay.The screening method may be less sensitive for certain medicationsincluding clonazepam and lorazepam in the benzodiazepine assay andtramadol or fentanyl in the opiate assay, amongst others. Patientcompliance, hydration status, timing and dose of medications, drugabsorption and specimen quality may affect screening assay.For clinical discrepancies, consider directed testing for specificcompounds or contact the laboratory within specimen stability toforward for confirmatory testing. This test is specified for medicalpurposes only. It is not valid for forensic use. UNLESS OTHERWISE INDICATED, ALL TESTING PERFORMED AT [facility] [address] [place] [address] CATERING DIRECTOR: CHRIS GALVIN M.D. CLIA NUMBER [id number] [place]. [id number] HIV 1/2 4TH GEN, RFLX [id number] 05:58:02* Test Item Value Reference Range Interpretation Comme nts HIV 1/2 4TH GEN, RFLX CONF ( test code = 3514) NON-REACTIVE NON-REACTIVE RPR REFLEX TO T. PALLIDUM - [id number] 04:01:59* Test Item Value Reference Range Interpretation Comme nts RPR (test code = 51177) NON-REACTIVE NON-REACTIVE RPR TITER (test code = 3500) NOT INDIC. TITER NOT INDIC. CBC W/AUTO DIFF WITH [id number] 03:53:30* Test Item Value Reference Range Interpretation Comme nts WBC (test code = 1001) 12.1 K/UL 3.5-11.0 H RBC (test code = 1002) 3.49 M/UL 3.80-5.40 L HEMOGLOBIN (test code = 1003) 10.2 G/DL 11.5-15.5 L HEMATOCRIT (test code = 1004) 29.6 % 34.0-45.0 L MCV (test code = 1005) 84.8 fL 80.0-99.0 MCH (test code = 1006) 29.2 PG 25.0-33.0 MCHC (test code = 1007) 34.5 G/DL 31.0-36.0 RDW (test code = 1038) 12.6 % 11.5-15.0 NEUTROPHILS (test code = 1008) 70.4 % LYMPHOCYTES (test code = 1010) 16.1 % MONOCYTES (test code = 1011) 9.4 % EOSINOPHILS (test code = 1012) 2.6 % BASOPHILS (test code = 1013) 0.3 % IMMATURE GRANULOCYTES (test code = 1036) 1.2 % NUCLEATED RBCS (test code = 1065) 0.0 /100 WBC'S See_Comment [Automated messa ge] The system which generated this result transmitted reference range: 0.0. The reference range was not used to interpret this result as normal/abnormal. PLATELET COUNT (test code = 1015) 262 K/UL 130-400 ABSOLUTE NEUTROPHILS (test code = 1066) 8.50 K/UL 1.50-7.50 H ABSOLUTE LYMPHOCYTES (test code = 1067) 1.94 K/UL 1.00-4.00 ABSOLUTE MONOCYTES (test code = 1068) 1.13 K/UL 0.20-1.00 H ABSOLUTE EOSINOPHILS (test code = 1040) 0.32 K/UL 0.00-0.50 ABSOLUTE BASOPHILS (test code = 1069) 0.04 K/UL 0.00-0.20 ABS IMMATURE GRANULOCYTES (test code = 1020) 0.15 K/UL 0.00-0.10 H ABS NUCLEATED RBCS (test code = 03240) 0.00 K/UL 0.00-0.11 NIPS W/ [id number] 17:03:39* Test Item Value Reference Range Interpretation Comments FINAL NIPS RESULT (test code = 88460) Low Risk SEX (test code = 47825) Female FRACTION (EST.) (test code = 32584) 7 % TRISOMY 21 (T21) (test code = 83394) Low probability T21 PRE-TEST PROB (test code = 54867) 1/1,146 T21 POST-TEST PROB (test code = 96537) <1/20,000 TRISOMY 18 (T18) (test code = 363809) Low probability T18 PRE-TEST PROB (test code = 249114) 1/2,515 T18 POST-TEST PROB (test code = 760574) <1/20,000 TRISOMY 13 (T13) (test code = 840774) Low probability T13 PRE-TEST PROB (test code = 693376) 1/6,972 T13 POST-TEST PROB (test code = 494913) <1/20,000 INTERPRETATION (test code = 246726) See Note [facility] cell-free DNA from maternalblood shows no evidence of numerical abnormalitiesof the tested chromosomes. IMPORTANT INFORMATION (test code = 246025) See Note Patients with a pre-test probability higher thanthe general population will have a higher residualrisk, even after negative NIPS results, than thosewith a lower pre-test probability. The pre-testprobability or risk of an abnormality is estimatedfrom maternal age but it may be influenced bycertain maternal or -related factors asdetailed in Test Performance Characteristics below.False negative NIPS results are rare but may occurdue to biological or analytical factors. RECOMMENDATION (test code = 503221) See Note A negative resul t does not eliminate the risk forother chromosomal abnormalities or birthdefects that are not evaluated in this screeningtest. Clinical correlation of test results isrecommended. GESTATION AT JENNIFER (W) (test code = 654486) 18 weeks GESTATION AT JENNIFER (D) (test code = 233736) 4 days DELIVERY DATE (EST.) (test code = 599391) 04/26/2023 PROVIDED HISTORY INFORMATION (test code = 965151) NUMBER OF FETUSES (test code = 336220) [place] MATERNAL WEIGHT (test code = 491679) 163 LBS IVF (test code = 723317) NO PATIENT CONSENT (test code = 548622) YES SEX (test code = 414238) See Note sex determ ination is based on detection of Ychromosome in DNA fragments. The absence of Ychromosome in this sample indicates a very highlikelihood that the fetus is female sex. Sexassignment may not be perfectly accurate due topregnancy-related issues such as demise amongother possibilities. sex determination doesnot exclude Sex Chromosome Aneuploidy (SCA),including Monosomy X, unless that testing isspecifically ordered. Genetic Counseling:The submitting laboratory can facilitate consultation with anindependent, qualified genetic counselor. Educational materials andinformation regarding genetic counseling services are available [email or web address]. Method:[facility]'s Non-Invasive Screening (NIPS)test is intended for early screening of aneuploidies (bothmonosomy and trisomy) in chromosomes 21, 18, 13, X and Y. The testutilizes [employer]'s [employer] NIPT Solution v2 and whole-genomesequencing of circulating fragments of cell-free DNA (cfDNA) obtainedfrom maternal plasma at 10 weeks gestation or later. The fetalcomponent of cfDNA is derived from placental tissue. Paired-endsequencing data of cfDNA are aligned with a reference genome (HG19)and analyzed by the [employer] NIPT Solution v2 algorithm to determinefetal fraction (FF) and numerical abnormalities in chromosomes 21,18, 13, X and Y. FF is used as a director quality systems parameter for NIPSanalysis and interpretation. This test was developed and itsperformance characteristics determined by [facility]). It has not been cleared or approved by the U.S. Food and DrugAdministration (FDA). The FDA has determined that such clearance orapproval is not necessary. This test is used for clinical purposesand should not be regarded as investigational or for research. FORMERLY NAMED [facility] isqualified to perform high complexity testing under the ClinicalLaboratory Improvement Amendments (CLIA). Test Performance Characteristics:[place] :Trisomy 21 (N=130): Sensitivity >99%, Specificity >99.9%Trisomy 18 (N=41): Sensitivity >99%, Specificity >99.9%Trisomy 13 (N=26): Sensitivity >99%, Specificity >99.9%Monosomy X (N=21): Sensitivity 90.5%, Specificity >99%Trisomy X (N=17): Sensitivity >99%, Specificity >99%XXY (N=23): Sensitivity >99%, Specificity >99%XYY (N=12): Sensitivity 91.7%, Specificity >99% Sensitivity and specificity for singletons for T21, T18 and T13 andsex chromosome aneuploidies (SCA) are derived from a study of 2,235pregnancies using the [employer] NIPT v2 test. The number of affectedpregnancies are indicated in parentheses in the chart above. Thespecificity estimate for SCA is based on identification of a definedSCA in all 73 affected pregnancies; the final cytogenetic results mayindicate a different SCA. Concordance between predicted sex and sexat delivery was >99.9%. Twin :Trisomy 21: Sensitivity 96.4%, Specificity 99.9%Trisomy 18: Sensitivity 95.7%, Specificity 99.9%Trisomy 13: Sensitivity 93.6%, Specificity 99.9% Test performance characteristics for T21, T18 and T13 in twinpregnancies are based on in silico simulation models due to the lowprevalence of trisomy 21, 18, and 13 in twin pregnancies. Sensitivityand specificity information is not available for Monosomy X or SCAin twin pregnancies. Pre- and Post-Test Probability:The pre-test probability of a trisomy in urbina and twinpregnancies, and SCA in urbina pregnancies is based on literatureof prevalence or risk. The post-test probability is calculated fromthe prevalence of an abnormality and the test performancecharacteristic s or is derived from published medical literature.Refer to www.[facility].com/erd for additionalinformation on pre- and post-test probability. Depending upon anumber of maternal or -related risk factors, an individualpregnancy may have higher or lower pre-test probability which cansignificantly affect the post-test risk estimation. Personal/familyhistory, sonographic and other -related screening findingsare not utilized in the risk estimation. Genetic or medicalcounseling may be useful to revise risk estimates. Test Limitations:[facility]'s NIPS test is a screening test, thereforefalse negative or false positive results can occur. Maternalconditions including but not limited to blood transfusion, organtransplantation, bone marrow transplant, certain surgical procedures,stem cell therapy, malignancy or genetic mosaicism can affect testaccuracy. -related conditions such as or placentalgenetic mosaicism, demise or nonviable twin can also affecttest accuracy. The test assesses numerical abnormalities of the givenchromosomes which does not eliminate the possibility that thepregnancy has numerical abnormalities of other chromosomes, balancedtranslocations or sub-chromosomal abnormalities (point mutations orsmall deletions). Test results should always be correlated andinterpreted in the context of clinical findings, family/patienthistory and other test results. Pregnancies affected by high riskresults may benefit from genetic counseling and should undergodefinitive confirmation testing. Conclusions about conditionand management decisions should not be based solely on theresults of this screening test. This NIPS test does not detect allgenetic, non-genetic or structural defects, includingopen neural tube defects for which biochemical or sonographicscreening options are available. TESTING PERFORMED AT [facility] [address] [place] [address], [facility] [address] [address] CLIA NO: [id number] CULTURE, [id number] 11:19:56SPECIMEN NUMBER: [id number] CULTURE, URINE SPECIMEN NUMBER: [id number] SPECIMEN COMMENT: URINE SOURCE: URINE REPORT STATUS: FINAL FINAL REPORT: 11/29/2022 10-50,000 CFU/ML UROGENITAL GRZEGORZ PRESENT NO CO MMON PATHOGENSCT/NG, NAAT, [id number] 18:32:49* Test Item Value Reference Range Interpretation Comme nts CHLAMYDIA, NAAT, URINE (test code = 67011) NEGATIVE NEGATIVE Testing is perfo rmed with [employer] 6800/8800 systems usingreal-time polymerase chain reaction (PCR) method. A negative result does not exclude low level infection, specimensampling error, or collection error. GONORRHEA, NAAT, URINE (test code = 26073) NEGATIVE NEGATIVE Testing is perfo rmed with [employer]LLY 6800/8800 systems usingreal-time polymerase chain reaction (PCR) method. A negative result does not exclude low level infection, specimensampling error, or collection error. VARICELLA ZOSTER [id number] 13:54:57* Test Item Value Reference Range Interpretation Comme nts VARICELLA ZOSTER IgG (test code = 64275) 20 INDEX SEE BELOW L INTERPRETATI ON VZV IgG NEGATIVE . . . . . . . . . . . . INDEX <135 EQUIVOCAL. . . . . . . . . . . . INDEX 135-164 NOTE: CONSIDER RETESTING IN A CLINICALLY SUITABLE PERIOD OF TIME, NO SOONER THAN 1-2 WEEKS. POSITIVE . . . . . . . . . . . . INDEX >=165 GLUCOSE, 1 HR, GESTATIONAL SCREEN, 50 GM [id number] 09:12:10* Test Item Value Reference Range Interpretation Comme nts GLUCOSE 1 HR POST 50 GM (test code = 2005) 81 MG/DL <140 UNLESS OTHERWISE INDICATED, ALL TESTING PERFORMED AT [facility] [address] [place] [address] CATERING DIRECTOR: CHRIS GALVIN M.D. [place] NUMBER [id number] [facility] [place]. [id number] DRUG ABUSE SCREEN 10 REFLEX [id number] 06:10:44* Test Item Value Reference Range Interpretation Comme nts AMPHETAMINES (test code = 3201) NEGATIVE NEGATIVE BARBITURATES (test code = 3202) NEGATIVE NEGATIVE BENZODIAZEPINES (test code = 3203) NEGATIVE NEGATIVE CANNABINOIDS (test code = 3204) NEGATIVE NEGATIVE COCAINE METABOLITE (test code = 3205) NEGATIVE NEGATIVE OPIATES (test code = 3209) NEGATIVE NEGATIVE OXYCODONE (test code = 16795) NEGATIVE NEGATIVE PHENCYCLIDINE (test code = 3210) NEGATIVE NEGATIVE METHADONE (test code = 3207) NEGATIVE NEGATIVE BUPRENORPHINE (test code = 29599) NEGATIVE NEGATIVE SOURCE (test code = 395955) URINE SEE BELOW FO R THRESHOLDS AND IMPORTANT METHOD NOTES ANALYTE SCREENING CUTOFF CONFIRMATORY CUTOFF AMPHETAMINES 500 NG/ML 100 NG/MLBARBITURATES 200 NG/ML 100 NG/MLBENZODIAZEPINES 200 NG/ML 100 NG/MLCANNABINOIDS (THC) 20 NG/ML 15 NG/MLCOCAINE METABOLITES 150 NG/ML 100 NG/MLOPIATE METABOLITES 300 NG/ML 100 NG/MLOXYCODONE 100 NG/ML 100 NG/MLPHENCYCLIDINE (PCP) 25 NG/ML 25 NG/MLMETHADONE 300 NG/ML 100 NG/MLBUPRENORPHINE 5 NG/ML 5 NG/ML NOTE: Screening methodology is qualitative Enzyme Immunoassay.The screening method may be less sensitive for certain medicationsincluding clonazepam and lorazepam in the benzodiazepine assay andtramadol or fentanyl in the opiate assay, amongst others. Patientcompliance, hydration status, timing and dose of medications, drugabsorption and specimen quality may affect screening assay.For clinical discrepancies, consider directed testing for specificcompounds or contact the laboratory within specimen stability toforward for confirmatory testing. This test is specified for medicalpurposes only. It is not valid for forensic use. OBSTETRIC PANEL + [id number] 05:03:20* Test Item Value Reference Range Interpretation Comme nts WBC (test code = 1001) 10.5 K/UL 3.5-11.0 RBC (test code = 1002) 3.76 M/UL 3.80-5.40 L HEMOGLOBIN (test code = 1003) 10.9 G/DL 11.5-15.5 L HEMATOCRIT (test code = 1004) 33.3 % 34.0-45.0 L MCV (test code = 1005) 88.6 fL 80.0-99.0 MCH (test code = 1006) 29.0 PG 25.0-33.0 MCHC (test code = 1007) 32.7 G/DL 31.0-36.0 RDW (test code = 1038) 12.8 % 11.5-15.0 NEUTROPHILS (test code = 1008) 66.7 % LYMPHOCYTES (test code = 1010) 21.6 % MONOCYTES (test code = 1011) 7.2 % EOSINOPHILS (test code = 1012) 3.6 % BASOPHILS (test code = 1013) 0.4 % IMMATURE GRANULOCYTES (test code = 1036) 0.5 % NUCLEATED RBCS (test code = 1065) 0.0 /100 WBC'S See_Comment [Automated me ssage] The system which generated this result transmitted reference range: 0.0. The reference range was not used to interpret this result as normal/abnormal. PLATELET COUNT (test code = 1015) 275 K/UL 130-400 ABSOLUTE NEUTROPHILS (test code = 1066) 7.02 K/UL 1.50-7.50 ABSOLUTE LYMPHOCYTES (test code = 1067) 2.27 K/UL 1.00-4.00 ABSOLUTE MONOCYTES (test code = 1068) 0.76 K/UL 0.20-1.00 ABSOLUTE EOSINOPHILS (test code = 1040) 0.38 K/UL 0.00-0.50 ABSOLUTE BASOPHILS (test code = 1069) 0.04 K/UL 0.00-0.20 ABS IMMATURE GRANULOCYTES (test code = 1020) 0.05 K/UL 0.00-0.10 ABS NUCLEATED RBCS (test code = 46058) 0.00 K/UL 0.00-0.11 BLOOD TYPE AND RH (test code = 3901) A POSITIVE A HISTORICAL RECORD CHECK FOR PREVIOUS RESULTS IS NOT PERFORMED.THESE RESULTS SHOULD BE CORRELATED WITH RESULTS OF PRIOR BLOODTYPING AND ANTIBODY SCREEN STUDIES. ANTIBODY SCREEN (test code = 3902) NEGATIVE NEGATIVE A HISTORICAL RECORD CHECK FOR PREVIOUS RESULTS IS NOT PERFORMED.THESE RESULTS SHOULD BE CORRELATED WITH RESULTS OF PRIOR BLOODTYPING AND ANTIBODY SCREEN STUDIES. RUBELLA ANTIBODY SCREEN (test code = 4600) 2 IU/ML SEE BELOW L RUBELLA IgG INTERP (test code = 76036) NON-REACTIVE REACTIVE A INTERPRETATI ON UNITS RANGE NON-REACTIVE/NON-IMM UNE IU/ML <10 REACTIVE/IMMUNE IU/ML >=10 HEPATITIS B SURF AG (test code = 2739) NON-REACTIVE NON-REACTIVE RPR (test code = 72570) NON-REACTIVE NON-REACTIVE RPR TITER (test code = 3500) NOT INDIC. TITER NOT INDIC. HIV 1/2 4TH GEN, RFLX CONF (test code = 3514) NON-REACTIVE NON-REACTIVE HEPATITIS C REFLEX [id number] 05:03:20* Test Item Value Reference Range Interpretation Comme nts HEPATITIS C ANTIBODY (test c ode = 4675) NON-REACTIVE NON-REACTIVE [id number] 03:42:03* Test Item Value Reference Range Interpretation Comme nts RPR RESULT (test code = 3501) NON-REACTIVE NON-REACTIVE RPR TITER (test code = 3500) NOT INDIC. TITER NOT INDIC. POCT GLUCOSE (AUTOMATED)2022-11-05 09:24:00* Test Item Value Reference Range Interpretation Comme nts POCT GLU (test code = 1279937668) 80 mg/dL 70-110 Lab Interpretation (test cod e = 95654-8) [facility] [id number] 06:40:24* Test Item Value Reference Range Interpretation Comme nts MESFIN PM (test code = 5182344174) 3.0 ug/dL 1.7-14.0 SUSIE (test code = SUSIE) Biotin has been reported to cause a positive bias, interpret results relative to patient's use of biotin. Lab Interpretation (test code = 30991-0) [facility] GLUCOSE (AUTOMATED)2022-11-05 05:40:14* Test Item Value Reference Range Interpretation Comme nts POCT GLU (test code = 9112790597) 103 mg/dL 70-110 Lab Interpretation (test cod e = 74707-4) [facility]st[facility]ID STIMULATING [id number] 03:07:32 * Test Item Value Reference Range Interpretation Comme nts TSH (test code = 6787052442) See_Comment L [Automated messa ge] The system which generated this result transmitted reference range: 0.45 - 4.70 mIU/L. The reference range was not used to interpret this result as normal/abnormal. Lab Interpretation (test code = 96730-0) Abnormal [facility] [id number] 02:53:49* Test Item Value Reference Range Interpretation Comme nts FREE T4 (test code = 9721812205) 1.14 See_Comment [Automated messa ge] The system which generated this result transmitted reference range: 0.78 - 2.20 ng/dL:. The reference range was not used to interpret this result as normal/abnormal. Lab Interpretation (test code = 62890-0) Normal [facility] [id number] 02:53:34* Test Item Value Reference Range Interpretation Comme nts FREE T3 (test code = 6252667395) 4.36 pg/mL 2.77-5.27 Lab Interpretation (test cod e = 55328-1) [facility] (AUTOMATED)2022-11-04 23:45:31* Test Item Value Reference Range Interpretation Comme nts POCT GLU (test code = 8404948209) 85 mg/dL 70-110 Notified Provide r Lab Interpretation (test code = 71915-7) Normal [facility] WITH [id number] 22:06:58* Test Item Value Reference Range Interpretation Comme nts WBC (test code = 6690-2) 9.08 See_Comment [Automated messa ge] The system which generated this result transmitted reference range: 4.30 - 11.10 10*3/?L. The reference range was not used to interpret this result as normal/abnormal. RBC (test code = 789-8) 3.97 See_Comment [Automated messa ge] The system which generated this result transmitted reference range: 3.93 - 5.25 10*6/?L. The reference range was not used to interpret this result as normal/abnormal. HGB (test code = 718-7) 12.1 g/dL 11.6-15.0 HCT (test code = 4544-3) 35.3 % 35.7-45.2 L MCV (test code = 787-2) 88.9 fL 80.6-95.5 MCH (test code = 785-6) 30.5 pg 25.9-32.8 MCHC (test code = 786-4) 34.3 g/dL 31.6-35.1 RDW-SD (test code = 28722-6) 42.1 fL 39.0-49.9 RDW-CV (test code = 788-0) 12.9 % 12.0-15.5 PLT (test code = 777-3) 263 See_Comment [Automated messa ge] The system which generated this result transmitted reference range: 166 - 358 10*3/?L. The reference range was not used to interpret this result as normal/abnormal. MPV (test code = 17186-2) 10.9 fL 9.5-12.9 NRBC/100 WBC (test code = 5839277212) 0.0 See_Comment [Automated me ssage] The system which generated this result transmitted reference range: 0.0 - 10.0 /100 WBCs. The reference range was not used to interpret this result as normal/abnormal. NRBC x10^3 (test code = 2773358528) See_Comment [Automated messa ge] The system which generated this result transmitted reference range: 10*3/?L. The reference range was not used to interpret this result as normal/abnormal. GRAN MAT (NEUT) % (test code = 770-8) 70.6 % IMM GRAN % (test code = 9081089109) 0.30 % LYMPH % (test code = 736-9) 17.5 % MONO % (test code = 5905-5) 8.5 % EOS % (test code = 713-8) 2.8 % BASO % (test code = 706-2) 0.3 % GRAN MAT x10^3(ANC) (test code = 0388479643) 6.41 10*3/uL 1.88-7.09 IMM GRAN x10^3 (test code = 3962154669) 0.03 10*3/uL 0.00-0.06 LYMPH x10^3 (test code = 731-0) 1.59 10*3/uL 1.32-3.29 MONO x10^3 (test code = 742-7) 0.77 10*3/uL 0.33-0.92 EOS x10^3 (test code = 711-2) 0.25 10*3/uL 0.03-0.39 BASO x10^3 (test code = 704-7) 0.03 10*3/uL 0.01-0.07 Lab Interpretation (test code = 59829-2) Abnormal [facility], [id number] 10:04:28SPECIMEN NUMBER: [id number] CULTURE, URINE SPECIMEN NUMBER: [id number] SPECIMEN COMMENT: URINE SOURCE: URINE REPORT STATUS: FINAL FINAL REPORT: 10/29/2022 <10,000 CFU/ML UROGENITAL GRZEGORZ PRESENT NO COMMON PATHOGENSVAGINAL PATHOGENS DNA PANEL 2022-10-28 14:46:31* Test Item Value Reference Range Interpretation Comme nts BRENDA SPECIES (test code = ) POSITIVE NEGATIVE A G. VAGINALIS (test code = ) NEGATIVE NEGATIVE T. VAGINALIS (test code = ) NEGATIVE NEGATIVE Note: The BD Aff irm VPIII Microbial Identification Testis a DNA probe test intended for use in the detectionand identification of Brenda species, Gardnerellavaginalis and Trichomonas vaginalis nucleic acid. UNLESS OTHERWISE INDICATED, ALL TESTING PERFORMED AT [facility] [address] [place] [address] CATERING DIRECTOR: CHRIS GALVIN M.D. CLIA NUMBER [id number] [facility] [place]. [id number] Consult Notes Date/Time Note Provider Source 2022-11-05 11:00:31 rGowPNY4GzAfExnCZqjh nIswcy8n9L0hP MmsJuhKLtWpk7t74uFyp0q7rWTlA+Rl20 18-11-09T11:00:31Associated Order(s): CONSULT CARDIOLOGY [facility] Cardiology ConsultPCP: PATIENT DOES NOT HAVE A PCP Date of Service: 11/05/2022HI COMPLAINT/reason for consult: Syncope HISTORY OF PRESENT ILLNESSThis is a 17 years old Female without significant medical history who came to [facility] due to syncope. She is 11 [...] except as mentioned in HPI PHYSICAL EXAMINATIONVitals: 11/04/22202911/04/22203411/05/22 0045 11/05/22924 BP: 134/88 112/62 Pulse: 81 79 [...] can be of further assistance.Allyson Billings MD, [facility], FASEAssociate ProfessorDivision of Cardiovascular MedicineBaylor Scott & [facility] [address]-2Zwipbqd jdwhLX6971-71-99Y68:03:31Consult noteTXT1.2.840.516376.1.13.104.2. 7.2.715879|[id number] for patient cnhw63583-6Xqcatat noteLNIM-CARDIOVASCULAR DISEASE STAFFIM-CARDIOVASCULAR DISEASE STAFF[address] BkqbRz[id number] 661FSBZDKRPFRPFFDSGGUFFRG7233-48- 10T11:03:311.2.840.254802.1.72.3. 15|1.2.840.338424.1.13.104.2.7.2. [id number] IM-CARDIOVASCULAR DISEASE STAFF [facility] 2022-11-05 10:54:29 W6FFpL7W8NvWoNOlTftQ IoCiMso4bIcCi NFX3KN+y6/BsacHpctwzv6MIsnmdAy/20 18-11-09T10:54:29Associated Order(s): CONSULT OB/GYN TRIAGE HISTORY & PHYSICALIDENTIFYING DATACourtalyse Arteaga is 17 year old, /White, Unknown, female with CARL Not found.. : 2005MRN: [id number] Care Physician: PATIENT DOES NOT HAVE A PCPCHIEF COMPLAINTSyncopeHISTORY OF PRESENT ILLNESSJaneth Arteaga is a 17 year old female,, 13w6d [...] found for: "RUBG" No results found for: "BYZM0BR" No results found for: "CGBS" HGB Date [...] 30-39.9) 13 weeks gestation of pregnancyASSESSMENT AND PLANCourtney Elizabeth Arteaga is a 17 year old at 13w6d with syncopal episodesWork up so far has been negative including Echo and EKG s/p cardiology consultAdvised to keep hydrated am diet regular small meals.She may follow up with her regular OB once dischargedThank you for [place] [address]-2Htkugas mlngHA5905-45-27L84:50:19Consult noteTXT1.2.840.900166.1.13.104.2. 7.2.343235|[id number] for patient orzo21296-6Mkwwxiy noteLNUTRUST - [address] KysoUtawkzwyaAswsegcenLNAK1734397 342NDULSOITQLAAPFIXCMYZUB9543-40- 10T12:50:191.2.840.692514.1.72.3. 15|1.2.840.645191.1.13.104.2.7.2. [id number] [facility] History and Physical Notes Date/Time Note Provider Source 2022-11-04 23:15:50 U2eJER5hDgcQHgPKzN2O cio5WUBG+ pX9P0TnAOzIJXKVJyUQwUN38Ol3SN pOlXDI7499-10-09I29:15:50Form atting of this note is different from the original.Medicine History & PhysicalDate of Service: 11/04/2022t presents from: homeCC: syncopeHistory of Present Illness:Janeth Arteaga is a 17 year old female with [...] 650 mg, 650 mg, Oral, Q6HPRN, Giovana Langston DO, 650 mg at 11/04/222013 NaCl 0.9% (NS) IV infusion 1,000 mL, 1,000 mL, IV Infusion, CONTINUOUS, Giovana Langston DO, Last Rate: 125 mL/hr at 11/04/222008, 1,000 mL at 11/04/222008Objective:Vitals:Vitals: 11/04/22 1945 11/04/22199911/04/22201311/04/222014 BP: 132/63 120/65 Pulse: 89 92 92 Resp: 18 Temp: TempSrc: SpO2: 100% 99% 99% Weight: Height: I/O's:No intake or output data in the 24 hours ending 11/04/22 1615Physical Exam:Constitutional: A&O x3, well-developed, well-nourished, and in [...] Status: fullDisposition: obs S igned:Roman Holt MD11/04/2022 24851-2Krjuuao and physical aownUZ0572-43-35V58:19:45Hist ory and physical noteTXT1.2.840.525902.1.13.10 4.2.7.2.608157|[id number] ailable for patient pnks05872-2Dmmsysf and physical noteLNIM-INTERNAL MEDICINE STAFF-INTERNAL MEDICINE STAFF[address] KhmyUcnkjrqfvGctnyyzlxWLKV036 6631527MRJPQSMDTIANEBAMJKLYOI 4419-73-29B75:19:451.2.840.11 4350.1.72.3.15|1.2.840.112730 .1.13.104.2.7.2.727879_[id number] 3387 IM-INTERNAL MEDICINE STAFF [facility] Notes Date/Time Note Provider Source 2023-03-01 15:30:00 eG8onh+R4t2J6Skq0KHN 5RFmLsDLLOtM FNRILbYfxh89cCFAW/XGEGnmm5VXJT+u 9148-71-03X03:30:00 Age: 17 year oldGA: 75u5wYqkeaejm from [facility]- Patient states that she was given CARL 04/17 - 04/26/23. ROR signed last visit. Have not received records yet. Will have staff follow-up.- denies complications with this other than syncopeHx of depression/anxiety- EPDS 0. CHAVO-7 score 0- stopped medication at age 16Vaginal discharge-For 2 days. Denies vaginal odor or irritation-GC/CT and vaginal pathogens collectedBraxton Morales contractions-SVE closed/thick/high- labor precautions givenDesires induction at 39 weeks. Tentatively plan for 04/19/2023 unless clinically indicated otherwiseDaaida coolFollow-up in 2 weeks for visit 57082-6Ihmspuzy ojpeMD7930-63-33E30:03:59Progres s noteTXT1.2.840.026804.1.13.104.2 .7.2.143145|[id number] e for patient whwz77868-0CruhUSVVSYPFFBLGlekzq sergey C-CDA narrative textUT[address] YbnqDtwzwtfrqFzmmijvekMRFJ227691 8776MKKWZDDERPRCPHUFEERGVK5529-3 :03:591.2.840.280451.1.72 .3.15|1.2.840.434350.1.13.104.2. 7.2.727879_[id number] [facility] 2023-02-15 10:00:00 6G16gE9GAqy4+KmGkKca 3WUat4inksC6 49OSrt5qkkD9xyst9uzXTF7fLFCXmS8C 5514-51-07Q48:00:00 Age: 17 year oldGA: 39d5zEmyefsyj from [facility]- Patient states that she was given CARL 04/17 - 04/26/23. ROR signed- denies complications with this other than syncopeHx of depression/anxiety- EPDS 1. CHAVO-7 score 3- stopped medication at age 16No complaints. Discussed do's and don'ts of , safe foods, safe medications. Reviewed Zika virus precautions. I discussed the call schedule and that I might not be the physician delivering her. I discussed I deliver my patients at [facility]. Expectations for weight gain this include 11-20 pounds. Encouraged to call if have any additional questions or concerns.Have received 2 doses of COVID vaccines. Counseled and recommend COVID boooster vaccines. Patient will think about itDiscussed about COVID-19/flu precautions. Social distancing, frequent hand washings, wearing face mask, signs/symptoms for testing and to follow CDC recommendations discussed.Discussed with patient that she can have HEALTHY support with her during her delivery (which is subject to change depends on the COVID pandemic)Received flu and Tdap brsuhebl0dj trimester teaching done- reviewed S/S of PTL (contractions, leakage of fluid and Vaginal bleeding) and also Kick Counts.Also dicussed Daljit-Morales, pelvic and lower back pains- expectations and differenced with S/S of PTLShe plans to breast fedBC options reviewed- opted for Nexplanon/IUDPediatrician: UndecidedEncourage patient to bring in wishes if she has any.Next visit in 2 week. 64001-2Fhwdjxpu kvuxIQ0511-39-29D12:28:47Progres s noteTXT1.2.840.534187.1.13.104.2 .7.2.021479|[id number] e for patient mtfw12357-2PmlaQHCXWYXOMPWTjxkbn sergey C-CDA narrative textUT[address] NsjbHsxlxltquWhvcgmeglKULE295679 0123XZDNFFXNVUSJZTEXLQOAWM8736-8 2-21T11:28:471.2.840.118425.1.72 .3.15|1.2.840.870757.1.13.104.2. 7.2.727879_[id number] [facility] 2022-11-04 19:31:59 B86Zm6YC9hvKg82hbqSa +rzx59PIUItU +zsre7sZCQLIYExIMCr8TCiJprPnXa0F 6564-63-69C21:31:59 Report given to OSCAR Long L&D 60883-3Iogyfdxce department MxzgQW7062-59-54I88:32:18[facility]me[facility] department NoteTXT1.2.840.360080.1.13.104.2 .7.2.758234|[id number] e for patient nrap99458-8WpkvJA790927676Mripef M Herrera RN[address]vdGalvestonGalvestonTXTX[address] 5782JBNNRPTJRLYRVPQRKCRSXD2947-5 :32:181.2.840.816579.1.72 .3.15|1.2.840.179966.1.13.104.2. 7.2.727879_[id number] Harper Peres RN [facility] 2022-11-04 17:19:54 WJI2S+T3Nd9PNyAoNeIF eI7HZyt/M768 CWLQXAPBlu3r0AYc2oVw0TXc4rCrkmHF 6152-66-40G31:19:54 11/04/22 1706 11/04/22 1708 11/04/22 1710 Orthostatic Vitals BP 119/70 122/87 123/86 BP Location Left arm Left arm Left arm Position Lying Sitting Standing Pulse 87 91 96(patient swayed back, became dizzy) 34187-2Wvtqffurq department VvxoOQ4407-19-02L23:20:01[facility]me[facility] department NoteTXT1.2.840.786666.1.13.104.2 .7.2.904155|[id number] e for patient yggo07179-2ItwbTQWCKMDQIB97 [address] StreetGalvestonTXTX[address] 2018YFZNSCPTDNTAMRAYQDLNCZ4589-3 7:20:011.2.840.149877.1.72 .3.15|1.2.840.130865.1.13.104.2. 7.2.727879_[id number] [facility] 2022-11-04 17:19:36 vNZYF5egFAQjv0TP4oLF JSgzv5K41k6f 0eJ+N1MO/LQyU8kyy2ZZsZ+TERDc09KX 1068-68-72D10:19:36 11/04/22170511/04/22 17011/04/22 1710 Orthostatic Vitals BP 119/70 122/87 123/86 BP Location Left arm Left arm Left arm Position Lying Sitting Standing Pulse 87 91 96(patient swayed back, became dizzy) 87733-0Bgghu AgemWK1147-48-09H85:19:48Nurse NoteTXT1.2.840.430105.1.13.104.2 .7.2.307389|[id number] e for patient nykk68641-4IctuUXESGJPUNQ55 Garcia StreetTXTX[address] 0493EOMDMOKSVBXUDGYJKMPJWL5110-7 7:19:481.2.840.680313.1.72 .3.15|1.2.840.116520.1.13.104.2. 7.2.727879_[id number] [facility] 2022-11-04 15:46:57 ahTL+FroDMPm8tojhiE4 Hv8c3em6yBmh KHxgGXwElezVeiNJj1cVStRQFjGC900u 7603-90-64P92:46:57 Pt states "I am 13 weeks and I fainted today while at a dog park with my sister. It happened before and I went to [facility], they didn't do anything, just told me to drink water." 98748-4Flrbsfjvo department Triage nkpfHJ4147-24-97Z39:48:08[facility] Triage noteTXT1.2.840.046902.1.13.104.2 .7.2.129318|[id number] e for patient jrks17888-4Cwitculmv department [address] BjhvHahbhgpsuOriyjftouFQOS259191 0874BRYHHRWGLVXALMJZGXYBDT9716-3 9-09T15:48:081.2.840.848665.1.72 .3.15|1.2.840.761611.1.13.104.2. 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 It happened before and I went to [facility], they didn't do anything, just told me to drink water." HPI The patient is a 17-year-old female who presents for syncopal episode. She is G1, P0 at 13 weeks gestation. She states that since she got she has had more than 10 episodes of syncope. She states that she seen multiple providers in has not gotten an answer to the cause of these issues. She states that she was instructed to "drink more water". She states was walking her dog today and had a witnessed episode. She does admit to intermittently having palpitations when she is not passing out. She denies any abdominal pain or vaginal bleeding. He denies any drug use. The patient presents for evaluation.History provided by: PatientSyncopeEpisode history: MultipleMost recent episode: TodayDuration: 30 secondsTiming: ConstantChronicity: NewWitnessed: yes Worsened by: NothingAssociated symptoms: chest pain and palpitations Associated symptoms: no dizziness, no fever, no headaches, no nausea, no shortness of breath and no vomiting Past Medical History / Immunizations No past medical history on file.Tetanus received in last 5 years: UnknownChildhood immunizations: [id number] Surgical History No past surgical history on file.Allergies Allergies Allergen Reactions Clindamycin Rash Social History Substance & Sexual Activity No substance use or sexual activity history on file. Review of Systems Review of Systems Constitutional: Negative. Negative for chills, fatigue, fever and unexpected weight change. HENT: Negative. Eyes: Negative. Negative for discharge and itching. Respiratory: Negative. Negative for cough, chest tightness, shortness of breath and wheezing. Cardiovascular: Positive for chest pain, palpitations and syncope. Gastrointestinal: Negative. Negative for abdominal distention, abdominal pain, nausea and vomiting. Genitourinary: Negative. Negative for dysuria, urgency, frequency and flank pain. Musculoskeletal: Negative. Skin: Negative. Negative for color change, pallor and wound. Neurological: Negative for dizziness, syncope, light-headedness and headaches. Psychiatric/Behavioral: Negative. Negative for agitation and behavioral problems. All other systems reviewed and are negative.Endocrine: Endocrine negativePhysical Exam ED Triage Vitals [11/04/22 1548] Weight 68 kg (150 lb) Actual or estimated Estimated by patient/family report Height 1.499 m (4' 11") BP (!) 143/75 Pulse 94 Resp 18 Temp 37.4 ?C (99.3 ?F) Temp source Oral SpO2 100 % Measured on Room air Physical ExamVitals reviewed. Constitutional: Appearance: She is well-developed. HENT: Head: Normocephalic and atraumatic. Nose: Nose normal. Eyes: Conjunctiva/sclera: Conjunctivae normal. Neck: Trachea: No tracheal deviation. Cardiovascular: Rate and Rhythm: Normal rate and regular rhythm. Heart sounds: Normal heart sounds. No murmur heard. No friction rub. Pulmonary: Effort: Pulmonary effort is normal. No respiratory distress. Breath sounds: Normal breath sounds. No stridor. No wheezing or rales. Abdominal: General: Bowel sounds are normal. There is no distension. Palpations: Abdomen is soft. Tenderness: There is no abdominal tenderness. There is no guarding or rebound. Musculoskeletal: General: Normal range of motion. Cervical back: Normal range of motion and neck supple. Skin: General: Skin is warm and dry. Neurological: Mental Status: She is alert and oriented to person, place, and time. Cranial Nerves: No cranial nerve deficit. Sensory: No sensory deficit. Psychiatric: Behavior: Behavior normal. Labs Lab Results CBC WITH DIFF - Abnormal Result Value Ref Range WBC 9.08 4.30 - 11.10 10*3/?L RBC 3.97 3.93 - 5.25 10*6/?L HGB 12.1 11.6 - 15.0 g/dL HCT 35.3 (*) 35.7 - 45.2 % MCV 88.9 80.6 - 95.5 fL MCH 30.5 25.9 - 32.8 pg MCHC 34.3 31.6 - 35.1 g/dL RDW-SD 42.1 39.0 - 49.9 fL RDW-CV 12.9 12.0 - 15.5 % PLT 263 166 - 358 10*3/?L MPV 10.9 9.5 - 12.9 fL NRBC/100 WBC 0.0 0.0 - 10.0 /100 WBCs NRBC x10^3 <0.01 10*3/?L GRAN MAT (NEUT) % 70.6 % IMM GRAN % 0.30 % LYMPH % 17.5 % MONO % 8.5 % EOS % 2.8 % BASO % 0.3 % GRAN MAT x10^3(ANC) 6.41 1.88 - 7.09 10*3/uL IMM GRAN x10^3 0.03 0.00 - 0.06 10*3/uL LYMPH x10^3 1.59 1.32 - 3.29 10*3/uL MONO x10^3 0.77 0.33 - 0.92 10*3/uL EOS x10^3 0.25 0.03 - 0.39 10*3/uL BASO x10^3 0.03 0.01 - 0.07 10*3/uL HEPATIC FUNCTION PANEL (58492) (ALB,T.PRO,BILI T,BU/BC,ALT,AST,ALK PHOS) - Abnormal TOTAL BILI 0.2 0.1 - 1.1 mg/dL BILI UNCON 0.0 (*) 0.1 - 1.1 mg/dL BILI CONJ 0.0 0.0 - 0.3 mg/dL T PROTEIN 6.8 6.3 - 8.2 g/dL ALBUMIN 3.9 3.5 - 5.0 g/dL ALK PHOS 55 34 - 122 U/L ALTv 28 5 - 35 U/L AST(SGOT) 42 (*) 13 - 40 U/L URINALYSIS - Abnormal APPEARANCE Turbid (*) Clear COLOR Guera (*) Yellow PH 7.0 4.8 - 8.0 SP GRAVITY 1.021 1.003 - 1.030 GLU U QUAL 150 mg/dL (*) Normal BLOOD Negative Negative KETONES Negative Negative PROTEIN Negative Negative UROBILIN 2.0 mg/dL (*) Normal BILIRUBIN Negative Negative NITRITE Negative Negative LEUK MATTI 25/uL (*) Negative RBC/HPF 1 0 - 3 HPF WBC/HPF 5 0 - 5 HPF BACTERIA Many (*) Negative MUCOUS Slight (*) Negative LPF SQ EPITH 40 HPF WBC CLUMPS 5 (*) <=1 HPF HYAL CAST 11 (*) <=2 LPF BASIC METABOLIC PANEL (NA, K, CL, CO2, GLUCOSE, BUN, CREATININE, CA) - Abnormal NA 136 135 - 145 mmol/L K 4.2 3.5 - 5.0 mmol/L CL 105 98 - 108 mmol/L CO2 TOTAL 22 (*) 23 - 31 mmol/L AGAP 9 2 - 16 BUN 5 (*) 7 - 23 mg/dL GLUCOSE 89 70 - 110 mg/dL CREATININE 0.41 (*) 0.50 - 1.04 mg/dL CALCIUM 9.1 8.6 - 10.6 mg/dL eGFR 199.8 mL/min/1.73m2 ACTIVATED PARTIAL THRMPLAS GENOVEVA - Normal APTT Patient 27 23 - 38 Seconds PROTHROMBIN TIME / INR - Normal PROTIME PATIENT 13.1 12.0 - 14.7 Seconds INR 1.0 TROPONIN I - Normal TROPONIN I 0.003 <=0.034 ng/mL N-TERMINAL PRO-BNP - Normal NT-proBNP 38 <=125 pg/mL URINE DRUG (IMMUNOASSAY) - COMPREHENSIVE DRUG SCREEN - Normal AMPHET Negative Negative ANTONIO U Negative Negative BENZO U Negative Negative Cocaine Metabolite Negative Negative METHADONE Negative Negative OPIATES Negative Negative PCP Negative Negative THC Negative Negative POCT GLUCOSE (AUTOMATED) - Normal POCT GLU 85 70 - 110 mg/dL TOTAL BETA HCG ASSAY BETA HCG 85,783.00 Non- female and male patients: <5 mIU/mL THYROID STIMULATING HORMONE FREE T4 FREE T3 CORTISOL PM SERUM Imaging No orders to display Orders and Treatments Orders Placed This Encounter Procedures CBC WITH DIFF ACTIVATED PARTIAL THRMPLAS GENOVEVA PROTHROMBIN TIME / INR HEPATIC FUNCTION PANEL (95018) (ALB,T.PRO,BILI T,BU/BC,ALT,AST,ALK PHOS) TROPONIN I N-TERMINAL PRO-BNP URINALYSIS TOTAL BHCG (QUANTITATIVE) URINE DRUG (IMMUNOASSAY) - COMPREHENSIVE DRUG SCREEN BASIC METABOLIC PANEL (NA, K, CL, CO2, GLUCOSE, BUN, CREATININE, CA) POCT GLUCOSE (AUTOMATED) THYROID STIMULATING HORMONE FREE T4 FREE T3 CORTISOL PM SERUM Consult 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 Orders Placed This Encounter Medications NaCl 0.9% (NS) bolus infusion 1,000 mL NaCl 0.9% (NS) IV infusion 1,000 mL acetaminophen (TYLENOL) tablet 650 mg Procedures EKGTime 1639Rate 79Normal sinusAxis normalIntervals normalNo acute ischemiaNotes & MDM Patient was evaluated for an emergency medical condition related to Syncope (13 weeks )DDXHypovolemiaOrthostas isHistory and/or review of systems is limited by:History limited: None.Diagnosis/Impression as of 11/04/221912 Syncope, unspecified syncope type Medical Decision MakingProblems Addressed:Syncope, unspecified syncope type: acute illness or injuryAmount and/or Complexity of Data ReviewedLabs: ordered. Decision-making details documented in ED Course.Radiology: ordered and independent interpretation performed. Decision-making details documented in ED Course.ECG/medicine tests: ordered and independent interpretation performed. Decision-making details documented in ED Course.RiskPrescription drug management.Limitations to patient care and compliance: none.Assessment/Summary:The patient is a 17-year-old female who presents for multiple syncopal episodes. She states she has been to the ED multiple times seeking assistance. She denies any chest pain but admits to palpitations intermittently throughout the day. She denies seizure history. She denies drug history. The patient states she was walking her dog today and had a witnessed syncopal episode. She denies any other somatic complaints today. Work-up is negative here in emergency department. As discussed this patient with Dr. Brooks. The patient will be admitted to the medicine service with OB consult. Laboratory evaluation within acceptable limits. She was admitted in stable condition.History, physical exam findings, results of visit, differential diagnosis, medication regimens and plan of future care have been considered. Additional MDM may be found in the ED course. Differential diagnosis considered and final disposition made based on information gathered during evaluation and may not be completely ruled out or specifically listed. Vital signs were rechecked before final disposition.Diagnosis Final diagnoses: [R55] Syncope, unspecified syncope type (Primary) Disposition & Follow Up ED Disposition ED Disposition Admit - Observation Condition -- Comment Is (or was) this a planned re-admission?: No Treatment Team: [facility] [[id number]] Is this patient COVID positive or a patient under investigation (PUI)?: No Patient's Medications No medications on file Ruby Gaines Jr. MDClinical Risk Control Consultant [place] Emergency DepartmentDragon Dictation Software is used frequently and may produce errors. Promptly contact for obvious discrepancies. Ruby Gaines MD11/04/221915 [id number] Emergency department [id number]:16:45Physici an Emergency department [id number] .[id number] e for patient [id number] department Note[address] Jw[id number] :16:451.2.840.678504.1.72 .3.15|1.2.840.137405.1.13.104.2. [id number] [facility] 2022-11-04 15:34:00 z3yFSL7tj/5VtYPEshfo 6AzE9MX7Jwur MqDW40Jx+Onu6zqgVM1aNAG5PmUAPD2c 5015-66-94C04:34:00 AdmissionCareGuideline: Syncope - OBS, ObservationBased on the indications selected for the patient, the bed status of Admit to Observation was determined to be METThe following indications were selected as present at the time of evaluation of the patient: - Syncope causing injury that may require inpatient care (ie, testing or observation necessary)AdmissionCare documentation entered by: Ruby GainesMercy Health St[facility] Charles Hospital, 27th edition, Copyright ? [address] [facility] HospitalPlayer X [facility] All Rights Reserved.[id number]:45:35-05: 00 [id number] Admission [id number]. [id number]:4 5:36EC Admission [id number] 04.2.7.2.209593|[id number] lable for patient [id number]GalvestonGalvestonTXTX[address] 77[id number] 11-04T18:45:361.2.840.562185.1.72 .3.15|1.2.840.889599.1.13.104.2. [id number] [facility]
--- NOTE | 2023-03-08 23:32 | ER ---
Nurse's Notes [facility] Name: Janeth Arteaga Age: 17 yrs Sex: Female : 2005 Arrival Date: 03/08/2023 Time: 23:03 Bed 1 Private MD: Diagnosis: Decreased movements, third trimester Presentation: 03/08 23:25 Chief complaint: Patient states: 33 weeks ; stressful day sine 1200 today; km8 about 3 hours ago started having constant lower ABD pain with back pain; denies any other symptoms;. Coronavirus screen: Client denies travel out of the [place] in the last 14 days. Ebola Screen: No symptoms or risks identified at this time. Initial Sepsis Screen: Does the patient meet any 2 criteria? HR > 90 bpm. No. Patient's initial sepsis screen is negative. Does the patient have a suspected source of infection? No. Patient's initial sepsis screen is negative. Risk Assessment: Do you want to hurt yourself or someone else? Patient reports no desire to harm self or others. Onset of symptoms was March 08, 2023 at 20:00. 23:25 Method Of Arrival: Ambulatory 8 23:25 Acuity: PHILLIP 3 km8 Triage Assessment: 23:27 General: Appears in no apparent distress. Behavior is cooperative, appropriate for age, km8 anxious. Pain: Complains of pain in right lower quadrant and left lower quadrant Pain currently is 7 out of 10 on a pain scale. EENT: No signs and/or symptoms were reported regarding the EENT system. Neuro: Level of Consciousness is awake, alert, obeys commands, Oriented to person, place, time, situation. Cardiovascular: Denies chest pain, shortness of breath, Capillary refill < 3 seconds Patient's skin is warm and dry. Respiratory: Airway is patent Respiratory effort is even, unlabored, Respiratory pattern is regular, symmetrical. GI: Reports lower abdominal pain. : No signs and/or symptoms were reported regarding the genitourinary system. Derm: No signs and/or symptoms reported regarding the dermatologic system. Skin is intact, is healthy with good turgor, Skin is dry, Skin is pink, warm \T\ dry. normal, Skin temperature is warm. Musculoskeletal: No signs and/or symptoms reported regarding the musculoskeletal system. Range of motion: intact in all extremities. 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 - Social history:: Smoking status: Patient/guardian denies using tobacco, Patient/guardian denies using alcohol, street drugs. Screenin:32 [facility] ED Fall Risk Assessment (Adult) History of falling in the last 3 months, vc1 including since admission No falls in past 3 months (0 pts) Confusion or Disorientation No (0 pts) Intoxicated or Sedated No (0 pts) Impaired Gait No (0 pts) Mobility Assist Device Used No (0 pt) Altered Elimination No (0 pt) Score/Fall Risk Level 0 - 2 = Low Risk Oriented to surroundings, Maintained a safe environment, Educated pt \T\ family on fall prevention, incl call for assistance when getting out of bed. Abuse screen: Denies threats or abuse. Nutritional screening: No deficits noted. Tuberculosis screening: No symptoms or risk factors identified. Vital Signs: 23:25 BP 132 / 82; Pulse 121; Resp 18; Temp 98.5(IR); Pulse Ox 100% on R/A; Weight 81.65 kg; 8 Height 4 ft. 11 in. ; Pain 7/10; 23:37 BP 130 / 78; Pulse 118; Resp 18; Pulse Ox 100% ; vc1 23:25 Body Mass Index 36.36 (81.65 kg, 149.86 cm) - Percentile 97.5 % [facility] 23:25 Pain Scale: Adult [facility] Vitals: 23:27 Heart Tones 174 BPM. vc1 ED Course: 23:14 Patient arrived in ED. gm2 23:20 Pop Lopes MD is Attending Physician. rt 23:27 Triage completed. km8 23:27 Arm band placed on right wrist. km8 23:27 Patient has correct armband on for positive identification. Bed in low position. Call vc1 light in reach. Pulse ox on. NIBP on. 23:32 Audrey Lake RN is Primary Nurse. vc1 23:32 No provider procedures requiring assistance completed. Patient did not have IV access vc1 during this emergency room visit. 23:33 Provided Education on: Drink ice water and lay on side when you don't feel your baby vc1 move. Administered Medications: No medications were administered Medication: 23:32 VIS not applicable for this client. vc1 Outcome: 23:31 Discharge ordered by . rt 23:33 Discharged to home ambulatory, vc1 23:33 Condition: good 23:33 Discharge instructions given to patient, Instructed on discharge instructions, follow up and referral plans. Demonstrated understanding of instructions, follow-up care, 23:38 Patient left the ED. vc1 Signatures: Audrey Lake RN RN vc1 Pop Lopes MD MD rt Noreen Mei 2 Mercedes Wagner RN RN km8
--- NOTE | 2023-03-08 23:32 | EDPHYS ---
Physician Documentation [facility] Name: Janeth Arteaga Age: 17 yrs Sex: Female : 2005 Arrival Date: 03/08/2023 Time: 23:03 Bed 1 Private MD: ED Physician Pop Lopes HPI: 03/09 04:05 This 17 yrs old Female presents to ER via Ambulatory with complaints of Pt is 8 months rt preg. and hasnt felt the baby move. 04:05 Patient was 8 months presents to the ED stating that she has not felt rt movement in about 3 hours. She denies contractions, vaginal bleeding, discharge, acute complaints. Symptoms are moderate in severity, no other aggravating elevating factors.. ECHOCARDIOLOGIST: 03/08 23:27 Verified km8 Historical: - Allergies: 23:27 Clindamycin; km8 - Home Meds: 23:27 Vitamin Oral [Active]; Iron CR Oral [Active]; km8 - PMHx: 23:27 None; km8 - PSHx: 23:27 None; km8 - Immunization history:: Client reports receiving the 2nd dose of the Covid vaccine, Flu vaccine is up to date. - Social history:: Smoking status: Patient/guardian denies using tobacco, Patient/guardian denies using alcohol, street drugs. ROS: 03/09 04:05 Constitutional: Negative for fever, chills, and weight loss, Cardiovascular: Negative rt for chest pain, palpitations, and edema, Respiratory: Negative for shortness of breath, cough, wheezing, and pleuritic chest pain, Abdomen/GI: Negative for abdominal pain, nausea, vomiting, diarrhea, and constipation, : Negative for injury, bleeding, discharge, and swelling, MS/Extremity: Negative for injury and deformity, Neuro: Negative for headache, weakness, numbness, tingling, and seizure, Exam: 04:05 Constitutional: This is a well developed, well nourished patient who is awake, alert, rt and in no acute distress. Head/Face: Normocephalic, atraumatic. Chest/axilla: Normal chest wall appearance and motion. Nontender with no deformity. No lesions are appreciated. Cardiovascular: Regular rate and rhythm with a normal S1 and S2. No gallops, murmurs, or rubs. Normal PMI, no JVD. No pulse deficits. Respiratory: Lungs have equal breath sounds bilaterally, clear to auscultation and percussion. No rales, rhonchi or wheezes noted. No increased work of breathing, no retractions or nasal flaring. Skin: Warm, dry with normal turgor. Normal color with no rashes, no lesions, and no evidence of cellulitis. MS/ Extremity: Pulses equal, no cyanosis. Neurovascular intact. Full, normal range of motion. Neuro: Awake and alert, GCS 15, oriented to person, place, time, and situation. Cranial nerves II-XII grossly intact. Motor strength 5/5 in all extremities. Sensory grossly intact. Cerebellar exam normal. Normal gait. Psych: Awake, alert, with orientation to person, place and time. Behavior, mood, and affect are within normal limits. 04:05 Abdomen/GI: Gravid uterus, no tenderness, Vital Signs: 03/08 23:25 BP 132 / 82; Pulse 121; Resp 18; Temp 98.5(IR); Pulse Ox 100% on R/A; Weight 81.65 kg; km8 Height 4 ft. 11 in. ; Pain 7/10; 23:37 BP 130 / 78; Pulse 118; Resp 18; Pulse Ox 100% ; vc1 23:25 Body Mass Index 36.36 (81.65 kg, 149.86 cm) - Percentile 97.5 % km8 23:25 Pain Scale: Adult km8 MDM: 23:25 Patient medically screened. rt 03/09 04:05 Differential Diagnosis Intrauterine demise, normal . Data reviewed: rt vital signs, nurses notes. Test considered but Not performed: Labs: Offered urinalysis to patient, she declined stating she has no urinary symptoms, follow-up with her ECHOCARDIOLOGIST for further care.. Counseling: I had a detailed discussion with the patient and/or guardian regarding the historical points, exam findings, and any diagnostic results supporting the discharge/admit diagnosis, lab results, the need for outpatient follow up, to return to the emergency department if symptoms worsen or persist or if there are any questions or concerns that arise at home. ED course: heart tones are within normal limits,'s patient states that she felt the baby move. Do not believe that formal ultrasound, labs are indicated, stable for outpatient care, return precautions discussed.. 03/08 23:27 Order name: Heart Tones; Complete Time: 23:28 vc1 Administered Medications: No medications were administered Disposition Summary: 03/08/23 23:31 Discharge Ordered Notes: Location: Home rt Problem: new rt Symptoms: have improved rt Condition: Stable rt Diagnosis - Decreased movements, third trimester rt Followup: rt - With: Private Physician - When: 2 - 3 days - Reason: Discharge Instructions: - Discharge Summary Sheet rt - Third Trimester of rt Forms: - Medication Reconciliation Form rt - Thank You Letter rt - Antibiotic Education rt - Prescription Opioid Use rt - Patient Portal Instructions rt - Leadership Thank You Letter rt Signatures: Audrey Lake RN RN vc1 Pop Lopes MD MD rt Mercedes Wagner RN RN km8
--- NOTE | 2023-03-09 03:16 | P.HP ---
Certification for Inpatient Patient admitted to: Observation Patient will require the following post-hospital care: None Practitioner: I am a practitioner with admitting privileges, knowledge of patient current condition, hospital course, and medical plan of care. Services: Services provided to patient in accordance with Admission requirements found in Title 42 Section 412.3 of the Code of Federal Regulations Patient History Date of Service: 03/09/23 Reason for admission: Wellbutrin overdose History of Present Illness: Pt is a 17 yo female with past medical history of PCOS, endometriosis, morbid obesity, Anxiety and depression who presents in the ER due to Wellbutrin overdose. Pt reports that she took 600mg ( about 4 pills) of wellbutrin because she was very tired and needed to sleep. Pt denies any suicidal attempt. Her family members found her and brought her to the Er. On getting to the ER, pt got out of the car and ran away. The police department later found her and brought her into the ER. Her family is concerned mental health. On admission, her vital signs are stable. Labs are still pending. ER physician called poison control center and they recommended 23 hours observation for EKG Q6h in order to monitor her QTc and seizure monitoring. At bedside, pt is in NAD. She denies any suicidal ideation, chest pain, SOB, palpitation, nausea, vomiting, abd pain, leg edema or dysuria. The police officers are outside her room in the ER. Home medications list reviewed: Yes - Past Medical/Surgical History Has patient received pneumonia vaccine in the past: No Diabetic: No Past Medical History: Reviewed- Non-Contributory -: Anxiety -: Depression -: PCOS -: Tonsillectomy - Family History Family History: Reviewed- Non-Contributory - Social History Smoking Status: Never smoker Smoking therapy provided: No Patient receptive to therapy: No Alcohol use: No CD- Drugs: No Caffeine use: No Place of Residence: Home Review of Systems Unremarkable General: Unremarkable Eyes: Unremarkable ENT: Unremarkable Respiratory: Unremarkable Cardiovascular: Unremarkable Gastrointestinal: Unremarkable Genitourinary: Unremarkable Musculoskeletal: Unremarkable Integumentary: Unremarkable Neurological: Unremarkable Lymphatics: Unremarkable Physical Examination - Physical Exam General: Alert, In no apparent distress, Oriented x3 HEENT: Atraumatic, Normocephalic, PERRLA Neck: Supple, 2+ carotid pulse no bruit Respiratory: Clear to auscultation bilaterally, Normal air movement Cardiovascular: No edema, Normal pulses, Regular rate/rhythm, Normal S1 S2 Capillary refill: <2 Seconds Gastrointestinal: Normal bowel sounds, Soft and benign, Non-distended Musculoskeletal: No clubbing, No swelling Integumentary: No rashes, No breakdown Neurological: Normal gait, Normal speech, Normal strength at 5/5 x4 extr, Normal tone, Sensation intact Lymphatics: No axilla or inguinal lymphadenopathy Assessment and Plan - Plan Wellbutrin overdose: Pt denies any suicide attempt. She took about 600mg of wellbutrin in order to sleep. Poison control wants pt to observed for for 23 hours in order to check QTc and seizure. Continue EKG Q6h. Suicidal ideation: Her family is worried about her mental health. Pt needs psych evaluation. Will continue bedside sitter in the room. Anxiety/ Depression: Will hold Wellbutrin for now. Morbid obesity; Pt was advised to lose weight. DVT ppx: heparin Code: Full Discharge Plan: Home Plan to discharge in: 24 Hours - Advance Directives Does patient have a Living Will: No Does patient have a Durable POA for Healthcare: No - Code Status/Comfort Care Code Status Assessed: Yes Code Status: Full Code
[2023-03-09 05:10] VITALS: TEMP 98.5; O2SAT 100
[2023-03-09 05:20] VITALS: BP 130/78
== END ==
LOC: ER 23:03
DX: O36.8130 Decreased fetal movements, third trimester, not applicable or unspecified (principal); O9A.213 Injury, poisoning and certain other consequences of external causes complicating pregnancy, third trimester; T43.291A Poisoning by other antidepressants, accidental (unintentional), initial encounter; O99.343 Other mental disorders complicating pregnancy, third trimester; F32.A Depression, unspecified; O99.213 Obesity complicating pregnancy, third trimester; E66.01 Morbid (severe) obesity due to excess calories; Z3A.00 Weeks of gestation of pregnancy not specified; Z88.3 Allergy status to other anti-infective agents
CPT/HCPCS: 99283